=== PATIENT | female | born 1970 | race Caucasian/White ===

== ENCOUNTER 2017-04-21 07:03 | Inpatient (IN) | payer OTHER ==
--- NOTE | 2017-03-26 17:46 | HP ---
CC: Swathi Khan MD * HISTORY AND PHYSICAL: DATE OF ADMISSION/SURGERY: 04/21/17 ATTENDING SURGEON: Payam Mark MD (DICTATED BY INEZ MUNIZ) CHIEF COMPLAINT: Large tubulovillous adenoma of the ascending colon. HISTORY OF PRESENT ILLNESS: Ayala Carrington is a pleasant 47-year-old female who was seen in our practice at [facility] earlier in February of this year to discuss a large tubulovillous adenoma found on a colonoscopy. The patient underwent colonoscopy because she had a family history of colon cancer in her mother who at age 59. She had a screening colonoscopy performed earlier in January by Dr. Yusef Marcelino that revealed a large polyp in the ascending colon. The polyp was found to be too large to be removed endoscopically, so it was biopsied and revealed a tubulovillous adenoma. Given the benign nature of the polyp; however, known family history of colon cancer in the patient, she was referred to our practice to discuss surgical option for the polyp removal. The patient herself denied any abdominal pain, nausea, or vomiting or any changes in the bowel habits since her colonoscopy. She has never complained of any melena or bleeding per rectum. No weight loss or night sweats recently. She had been seen by Dr. Mark back in early February and he discussed with her proceeding with a laparoscopic approach, hoping to minimize the recovery period for the patient if we do it laparoscopic assisted on the wedge resection style. We also discussed with her back then combining a laparoscopic approach with intraoperative colonoscopy to help localize the lesion to be removed with clear margin. The patient returned to the office today to discuss the surgical options. She is scheduled for a laparoscopic partial colectomy with Dr. Mark with possible intraoperative colonoscopy and colonoscopic polypectomy to be scheduled on a later date on 04/21/17. Since her last office visit, the patient reports doing extremely well. She denies any abdominal pain, nausea, vomiting, change in bowel habits, melena or bleeding per rectum. She is getting ready to take a trip to [place] with her significant other and she will return back home a few days before her anticipated surgery. PAST MEDICAL HISTORY: Significant for benign essential hypertension, bipolar 1 disorder as well as seasonal allergies. PAST SURGICAL HISTORY: Significant for dilatation and curettage back in December of this year. She, otherwise, has never had any abdominal surgeries in the past. CURRENT MEDICATIONS: At home include: 1. Fluticasone propionate 50 mcg 1 spray in each nostril daily as needed for seasonal allergy. 2. Lisinopril 10 mg once daily. 3. Concerta 36 mg 2 tablets once daily. 4. Seroquel 300 mg half tablet p.o. q.h.s. 5. Lamotrigine 200 mg 1 tablet q.h.s. 6. Abilify 2 mg once q.h.s. 7. Zyrtec Allergy 10 mg once daily. ALLERGIES: She has no known drug allergies. FAMILY HISTORY: As mentioned above, significant for colon cancer in her mother who at age 59 and she also has history of hypertension. SOCIAL HISTORY: The patient has never smoked. She consumes about 3 to 4 glasses of wine weekly. She exercised on a regular basis and caffeine intake is minimal. REVIEW OF SYSTEMS: See HPI. Otherwise negative. She denies any headache, dizziness, blurred vision, or double vision. No sore throat, cough, wheezing, or shortness of breath. No chest pain, palpitations, or syncope. She denies any abdominal pain, nausea, vomiting, changes in the bowel habits, melena, or bleeding per rectum. No fever, chills, weight loss, or night sweats. She denies any flank pain, dysuria, hematuria, or urinary frequency. PHYSICAL EXAMINATION GENERAL: She is a pleasant middle-aged female, healthy appearing, slightly overweight but in no acute distress or discomfort at the time of visit. VITAL SIGNS: Her blood pressure is 140/90, temperature of 98.4, pulse of 76. She is 5 feet 6 inches, weight 240 pounds with BMI of 38. HEENT: Sclerae anicteric. PERRLA. EOMs intact. Oropharynx is pink and moist with no exudate. NECK: Supple. Trachea midline. No cervical adenopathy, thyromegaly, or JVD. LUNGS: Clear to auscultation bilaterally. HEART: Regular rate and rhythm. Normal S1 and S2 without rubs, murmurs, or gallops. BACK: Normal curvature. No CVA tenderness. BREAST EXAM: Deferred at this time. ABDOMEN: Soft, round, slightly obese, nontender, and nondistended. There are no hernias, masses, or hepatosplenomegaly. No guarding, rigidity, or rebound tenderness. EXTREMITIES: Without cyanosis, clubbing, or edema. RECTAL: Exam deferred at this time. NEUROLOGIC: Grossly intact. IMPRESSION: A 47-year-old female with a family history of colon cancer who was found to have a large tubulovillous adenoma of the ascending colon on her screening colonoscopy who was seen in the office today to discuss surgical removal of this large polyp. PLAN: The patient was seen by Dr. Mark as well as Dr. Ibarra who will assist Dr. Mark with intraoperative colonoscopy part as well as possibility of colonoscopic polypectomy. The patient appears to be a good candidate for the laparoscopic-assisted wedge resection as outlined above. We discussed with her proceeding with the surgery as minimally invasive as possible. Risks include but not limited to infection, bleeding, or injury to adjacent structure. She appears understandable to inherent risk and wishes to proceed with the surgery as outlined. She will have her readmission testing done prior to her trip to [place] and surgery will be scheduled few days upon her return to be performed by Dr. Mark and Dr. Ibarra on 04/21/17. We will follow her up accordingly. INEZ MUNIZ [id number]/[facility] [place] #: [id number] MTDAg
[~2017-04-21 07:03] MED LIST: Buffered Lidocaine 0.9% SYRIN* 5 ML/SYR SYRINGE INTRADERM ONE; Dexamethasone TAB* 4 MG PO ONE; ERTApenem(*) 1 GM in NS 0.9% 50 ML* 50 ML IVPB SCH; Famotidine IV* 10 MG/ML 2 ML (20 mg) IV ONE; Morphine INJ* 2 MG/ML 1 ML SYRINGE IV PRN; PROCHLORPERAZINE INJ 5 MG/ML 2 ML VIAL IV PRN
[2017-04-21] MEDS ORDERED: Buffered Lidocaine 0.9% SYRIN* 5 ML/SYR SYRINGE ONE (07:06)
[2017-04-21] MEDS ORDERED: Famotidine IV* 10 MG/ML 2 ML (20 mg) ONE (07:06)
[2017-04-21] MEDS ORDERED: Dexamethasone TAB* 4 MG ONE (07:06)
[2017-04-21] MEDS ORDERED: Scopolamine 1.5 mg* PATCH ONE (08:00)
[2017-04-21] MEDS ORDERED: Midazolam* 1 MG/ML 5 ML VIAL (5 MG) ONE (08:05)
[2017-04-21] MEDS ORDERED: fentaNYL* 50 MCG/ML 5 ML VIAL (250 MCG VIAL) ONE (08:05)
[2017-04-21] MEDS ORDERED: KETAMINE HCL* 50 MG/ML 10 ML VIAL ONE (08:05)
[2017-04-21] MEDS ORDERED: Atracurium* 10 MG/ML 10 ML VIAL ONE ×2 (08:05→11:52)
[2017-04-21] MEDS ORDERED: Bupivacaine 0.5% W/EPI SDV* 10 ML VIAL INJ ONE ×3 (08:43→12:27)
[2017-04-21] MEDS ORDERED: Phenylephrine INJ* 10 MG/ML 1 ML VIAL (10 MG) ONE (09:32)
[2017-04-21] MEDS ORDERED: Glycopyrrolate IV* 0.2 MG/ML 1 ML VIAL ONE (09:32)
[2017-04-21] MEDS ORDERED: Ondansetron INJ* 2 MG/ML VIAL ONE (09:32)
[2017-04-21] MEDS ORDERED: PROCHLORPERAZINE INJ 5 MG/ML 2 ML VIAL ONE (09:32)
[2017-04-21] MEDS ORDERED: Propofol* 10 MG/ML 20 ML BTL IV PUSH ONE (09:32)
[2017-04-21] MEDS ORDERED: Neostigmine Methylsulfate* 2 MG/2 ML SYRINGE ONE (09:32)
[2017-04-21] MEDS ORDERED: EPHEDrine (Pressors)* 50 MG/ML VIAL ONE (09:32)
[2017-04-21] MEDS ORDERED: Dexamethasone IV* 4 MG/ML 1 ML (4 MG) ONE (09:32)
[2017-04-21] MEDS ORDERED: Morphine INJ* 10 MG/ML 1 ML SYRINGE ONE ×2 (09:58→11:52)
[2017-04-21] MEDS ORDERED: hydrALAZINE IV* 20 MG/ML VIAL ONE (12:43)
[2017-04-21] MEDS ORDERED: Acetaminophen TAB* 325 MG PO PRN (12:48)
[2017-04-21] MEDS ORDERED: Docusate CAP* 100 MG PO PRN (12:48)
[2017-04-21] MEDS ORDERED: Ondansetron INJ* 2 MG/ML VIAL IV PRN (12:48)
[2017-04-21] MEDS ORDERED: Albuterol HFA INHALER* 8 gm MDI INH PRN (12:53)
--- NOTE | 2017-04-21 13:01 | PN ---
Progress Note - Progress Note Date of Service: 04/21/17 Note: Brief Operative Note: Pre-op: Ascending colon mass Post-op: Same Procedure: Laparoscopic assisted ascending colon polypectomy with intra- operative colonoscopy Surgeon: Dr. Mark [place] Layer: Dr. Ibarra, Dr. Bollo. Estela Jay Anaesthesia: GETA EBL: <100 cc Fluids: LR 3,000 cc Catheter: Piña to gravity Drains: None Specimen: Ascending colon polyp Findings: See dictated op note
[2017-04-21] MEDS ORDERED: fentaNYL* 50 MCG/ML 2 ML VIAL (100 MCG VIAL) ONE (13:05)
[2017-04-21] MEDS: fentaNYL* 50 MCG/ML 2 ML VIAL (100 MCG VIAL) IV PRN ×4 (13:08→13:25)
[2017-04-21] MEDS ORDERED: Morphine INJ* 4 MG/ML 1 ML SYRINGE ONE (13:45)
[2017-04-21] MEDS ORDERED: Morphine INJ* 4 MG/ML 1 ML SYRINGE IV PRN (15:06)
[2017-04-21] MEDS: HYDROmorphone* 1 MG/ML 1 ML SYR IV PRN ×4 (16:01→21:17)
[2017-04-21] MEDS: lamoTRIgine TAB(*) 100 MG PO SCH (21:19)
[2017-04-21] MEDS: QUEtiapine TAB* 300 MG PO SCH (21:19)
[2017-04-21] MEDS: Heparin VIAL(*) 5000 UNITS/ML VIAL (FIVE THOUSAND) SUBCUT SCH (21:20)
[2017-04-22] MEDS: LORazepam TAB(*) 0.5 MG PO PRN ×3 (02:41→23:26)
[2017-04-22] MEDS: HYDROmorphone* 1 MG/ML 1 ML SYR IV PRN ×3 (03:29→09:20)
--- NOTE | 2017-04-22 04:18 | OP ---
CC: Swathi Khan MD; Yusef Marcelino MD OPERATIVE REPORT: DATE OF OPERATION: 04/21/17 DATE OF : 70 SURGEON: Payam Mark MD CO-SURGEON: Dr. Ibarra PRE-OP DIAGNOSIS: Polyp of ascending colon. POST-OP DIAGNOSIS: Polyp of ascending colon. OPERATIVE PROCEDURE: Laparoscopic assisted wedge resection of polyp from ascending colon with intra operative colonoscopy. ESTIMATED BLOOD LOSS: Minimal. IV FLUIDS: Crystalloid. SPECIMEN: Polyp of ascending colon. DRAINS: None. COMPLICATIONS: None. COUNTS: The instrument, needle, and sponge counts were correct. DESCRIPTION OF PROCEDURE: The patient was brought to the operating room and placed on the table sup ine. Sequential compression devices were placed on both lower extremities. General anesthesia was administered. Piña catheter was placed. She was positioned and padded appropriately. She was pre pped and draped in usual sterile fashion. She received appropriate antibiotics. Time-out was perfo rmed. Local anesthetic was infiltrated infraumbilically and a vertical infraumbilical incision was created using an open technique. Peritoneal cavity was accessed. A 5- mm optical trocar was placed and ca rbon dioxide was insufflated to a pressure of 15 mmHg. Under direct visualization, 5-mm trocars wer e placed in the suprapubic midline, also in the right lower quadrant and in the left upper quadrant. Inspection revealed generous omentum and inspection also revealed tattooing at the ascending colon just proximal to the hepatic flexure. Mobilization of the right colon proceeded from the midline starting at the gastrocolic ligament and dividing this to the hepatic flexure taking down the attachments there while preserving the duodenum and stomach from any injury. The mobilization continued along the ascending colon, working proxima lly as well as from the ileocecal region working distally until the right colon was medially rotated . At this point, a clamp was placed on the distal ileum just proximal to the ileocecal valve and Dr Val Ibarra performed the intraoperative colonoscopy. After attempting to staple off the polyp with colonoscopic visualization failed, the decision was ma de to perform a wedge resection of the colon polyp. Initially this was attempted as a intracorporea l procedure; however, it was determined that the size of the polyp would not allow for this and ther efore, after making a small colotomy that was oversewn with 3-0 silk and then a small midline laparo sarthak was created and then right colon was exteriorized. The polyp was excised completely and then t he colotomy was closed with two firings of the TA-90 blue stapler and this staple line was oversewn, had bleeding spots with 3-0 silks and ultimately it was oversewn in a whip-stitch fashion with a 3- 0 Maxon. After assuring hemostasis, the colon was irrigated, was returned to the abdominal cavity a nd then the midline wound was closed with a #1 Polysorb in an interrupted [id number] fashion. The ports were removed. The hemostasis was assured. The skin wounds were irrigated, closed with st aples. Dressings were applied. The patient tolerated the procedure well, was extubated and transfe rred to recovery room in stable condition. [id number]/[facility] #: [id number]
[2017-04-22] MEDS: Heparin VIAL(*) 5000 UNITS/ML VIAL (FIVE THOUSAND) SUBCUT SCH ×3 (06:10→21:38)
--- NOTE | 2017-04-22 08:36 | PN ---
Progress Note - Progress Note Date of Service: 04/22/17 SOAP: Subjective: This is a 47-year old female POD#1 s/p lap->open ascending colon polypectomy. - c/o bloating. reports having hiccups but denies flatus and BMs. - Pt tolerating clear liquid diet well w/o n/v. has some appetite. - c/o tender in abdomen and pain at incision site with ambulation - Pain moderately controlled with IV Dilaudid. Objective: - WNWD female in NAD, appear comfortable in chair. - VSS, afebrile - Heart: RRR, no murmurs - Lungs: CTA bilaterally - Abdomen: dressings CDI. No bowel sounds present in all 4 quadrants. Round, soft, non-distended, tender to palpation around the midline incision. - Phillips catheter drains clear yellow urine. - Extremities: Swelling in right hand (IV side), no ankle swelling, calves soft and non-tender. Temp Pulse Resp BP Pulse Ox 98.4 F 64 20 117/71 95 04/22/17 07:24 04/22/17 07:24 04/22/17 08:00 04/22/17 07:24 04/22/17 08:00 Assessment: -POD#1 s/p ascending colon polypectomy: patient is doing well. -Anxiety: well controlled by Ativan Plan: - Continue clear liquid diet, await bowel function. - Continue pain management. - Encourage ambulation as tolerated. <Cathi Arreguin - Last Filed: 04/22/17 08:45> - Progress Note SOAP: Subjective: Patient seen and examined. Agree to above note. Objective: [] Assessment: POD#1, s/p lap assisted ascending colon polypectomy, doing well. Plan: Ambulate Await bowel function D/C phillips Keep on clear liquids Pain management <Bianka Jay - Last Filed: 04/22/17 09:42>
[2017-04-22] MEDS: Lisinopril TAB* 10 MG PO SCH (08:41)
[2017-04-22] MEDS: Methylphenidate ER TAB* 18 MG PO SCH (08:42)
[2017-04-22] MEDS: ARIPiprazole TAB* 2 MG PO SCH (09:13)
[2017-04-22] MEDS: oxyCODONE/Acetamin 5/325 MG* TAB PO PRN ×3 (13:29→23:13)
[2017-04-22] MEDS: QUEtiapine TAB* 300 MG PO SCH ×2 (18:44→21:37)
[2017-04-22] MEDS: lamoTRIgine TAB(*) 100 MG PO SCH (21:38)
[2017-04-22] MEDS ORDERED: diPHENhydraMINE IV* 50 MG/ML 1 ml VIAL (BENADRYL) IV ONE (23:19)
[2017-04-23] MEDS: oxyCODONE/Acetamin 5/325 MG* TAB PO PRN ×5 (03:32→22:36)
[2017-04-23] MEDS: Heparin VIAL(*) 5000 UNITS/ML VIAL (FIVE THOUSAND) SUBCUT SCH ×3 (05:18→22:36)
[2017-04-23] MEDS: Omeprazole CAP* 20 MG PO SCH (07:38)
--- NOTE | 2017-04-23 07:45 | PN ---
Progress Note - Progress Note Date of Service: 04/23/17 SOAP: Subjective: This is a 47-year old female POD#2 s/p lap->open ascending colon polypectomy. - Patient denies any complains. - Tolerating clear liquid diet well w/o n/v, having some appetite and wants to eat more. - Denies any BMs or passing flatus, states "Burping only". - Pain well controlled by PO Percocet only, states feels better than with Dilaudid. - Piña d'c ed yesterday, no complaints with urination. Denies pain with urination or blood in the urine. Patient is able to walk and use the bathroom. - reports holding a folded blanket against abdomen to apply pressure, feels better. Objective: - WNWD female in NAD appears comfortable in chair - VSS, afebrile - Heart: RRR, no murmurs - Lungs: CTA bilaterally. - Abdomen: Dressings from day of surgery, CDI Hypoactive bowel sounds present round, soft, non distended. Tender to palpation around midline incision. - Extremities: Hand swelling resolved. No ankle swelling. Intake & Output 04/22/17 04/23/17 04/23/17 22:59 06:59 14:59 Intake Total 933 980 Output Total 950 350 Balance -17 630 Intake: IV Fluids 933 980 LR 933 980 Output: Urine 950 350 Temp Pulse Resp BP Pulse Ox 97.4 F 70 18 105/74 97 04/23/17 07:29 04/23/17 07:29 04/23/17 07:29 04/23/17 07:29 04/23/17 07:29 Assessment: - POD#2 s/p lap->open ascending colon polypectomy: Patient is stable and doing well. Plan: - Advance to full liquid diet as tolerated. - Order abdominal binder. - Continue pain management - Encourage ambulation as tolerated. - Await bowel function.
[2017-04-23] MEDS: Methylphenidate ER TAB* 18 MG PO SCH (08:28)
--- NOTE | 2017-04-23 08:30 | OP ---
DATE OF OPERATION: 04/21/17 - ROOM #338 DATE OF : 70 SURGEON: Austin Ibarra MD ANESTHESIOLOGIST: Dr. Lopez. ANESTHESIA: General. PRE-OP DIAGNOSIS: Tubulovillous adenoma of the ascending colon. POST-OP DIAGNOSIS: Tubulovillous adenoma of the hepatic flexure. OPERATIVE PROCEDURE: Colonoscopy to cecum, intraoperative. ESTIMATED BLOOD LOSS: None. SPECIMENS: None. COMPLICATIONS: None. NOTE: The colonoscopy was done intraoperatively with the patient under general anesthesia along with a simultaneous diagnostic laparoscopy with Dr. Payam Mark for identification and location of the the known existing polyp that was noted on a routine screening colonoscopy recently. Biopsies had shown this to be a tubulovillous adenoma without evidence of dysplasia; however, felt to be too large for endoscopic removal. At this point, she is to undergo a combined colonoscopy as well as diagnostic laparoscopy with possible laparotomy for removal of the polyp and the colonoscopy is being done to identify the polyp and perhaps expedite removal with a wedge resection or assist with a more formal resection. The procedure of colonoscopy was discussed with the patient preoperatively and the risks are but not limited to bleeding, infection, intra-abdominal abscess formation, perforation requiring colonic repair and/or resection with possible colostomy. Risks of anesthesia were also discussed. DESCRIPTION OF PROCEDURE: The patient had been placed under general anesthesia. The laparoscopic exposure and mobilization of the transverse and right colon had been performed and a clamp was placed on the terminal ileum to prevent insufflation of the small bowel itself. The digital rectal exam was performed, which showed slightly decreased tone, no evidence of mass or blood. The Pentax videoendoscope was then inserted in the anal canal. With under direct vision, it was advanced around to the right colon. There was some tortuosity in the splenic flexure area but this was traversed with some persistence. We were able to identify the cecum, ileocecal valve, and appendiceal orifice and photographs were taken of this location. The preparation throughout was excellent. The endoscope was withdrawn and here we were able to identify the rather large tubulovillous adenoma, which in conjunction with the laparoscopic view and the previously place tattoo showed this to be just about the hepatic flexure. Next, along with Dr. Mark using the laparoscopic instruments to manipulate the colon, we attempted to localize the polyp along the wall of the colon to see if there was the possibility of a stapled wedge resection. However after placing both the snare as well as a larger biopsy forceps to manipulate the lesion and bring it up into view and attempting to place a stapler externally to see if this could be removed, in this manner, we felt that the polyp was too large and in a location on the antimesenteric border, which made this not possible and at this point, decision was made to remove the colonoscope and proceed with an open polyp resection. The colonoscope was then withdrawn and as much as of the air was suctioned from the colonic lumen. No other abnormalities were noted on retrieval and the remainder of the scope. The patient tolerated this portion of the procedure well. [id number]/[facility] #: [id number] [facility]
[2017-04-23] MEDS ORDERED: Fluticasone NASAL SPRAY 50MCG* 16 gm SPRAY BTL BOTH NARES PRN (08:49)
[2017-04-23] MEDS ORDERED: Cetirizine* 10 MG TAB PO PRN (08:49)
--- NOTE | 2017-04-23 08:49 | PN ---
Progress Note - Progress Note Date of Service: 04/23/17 SOAP: Subjective: Hungry but no flatus or BM. Pain is well controlled with po meds. Objective: Vital Signs Temp 97.4 F 04/23/17 07:29 Pulse 70 04/23/17 07:29 Resp 18 04/23/17 08:00 BP 105/74 04/23/17 07:29 Pulse Ox 96 04/23/17 08:00 Intake & Output 04/22/17 04/23/17 04/23/17 18:59 06:59 18:59 Intake Total 1102 1913 Output Total 2500 550 Balance -1398 1363 Intake: IV Fluids 862 1913 LR 862 1913 Oral 240 Output: Urine 1200 550 Piña 1300 NAD Lungs: CTA B Heart: reg s1s2 Abd: incis c/d/i, no erythema; +BS, soft; tender at incisions. Path pending Assessment: POD#2 s/p lap assist wedge rsxn for R colon polyp. Stable. Plan: Await GI fct. Full liquids. Await path. D/c likely in 1-2 days. Shower. Plan d/w patient.
[2017-04-23] MEDS: ARIPiprazole TAB* 2 MG PO SCH (08:58)
[2017-04-23] MEDS: Lisinopril TAB* 10 MG PO SCH (08:58)
[2017-04-23] MEDS: D5W 1/2 NS KCl 20 Meq 1000 ML* 1,000 ML IV SCH ×2 (09:01→18:42)
[2017-04-23] MEDS: QUEtiapine TAB* 300 MG PO SCH (20:34)
[2017-04-23] MEDS: lamoTRIgine TAB(*) 100 MG PO SCH (20:35)
[2017-04-23] MEDS: LORazepam TAB(*) 0.5 MG PO PRN (22:01)
[2017-04-23] MEDS: HYDROmorphone* 1 MG/ML 1 ML SYR IV PRN (23:45)
[2017-04-24] MEDS: oxyCODONE/Acetamin 5/325 MG* TAB PO PRN ×5 (04:05→22:49)
[2017-04-24] MEDS: D5W 1/2 NS KCl 20 Meq 1000 ML* 1,000 ML IV SCH (04:18)
[2017-04-24] MEDS: Heparin VIAL(*) 5000 UNITS/ML VIAL (FIVE THOUSAND) SUBCUT SCH ×3 (06:11→21:56)
--- NOTE | 2017-04-24 07:47 | PN ---
Progress Note - Progress Note Date of Service: 04/24/17 SOAP: Subjective: This is a 47-year old female POD#3 s/p ascending colon polypectomy. - Tolerating full liquid diet well w/o n/v. Has some appetite, wants to eat some soft food. - reports passed flatus twice overnight, still burping. Denies any BM. - c/o SOB with walking, denies chest pain. No SOB when resting.- Got 1 dose of Dilaudid last night because of increased tenderness around midline incisions. pt thinks might be caused by too much walking. - Abdominal binder helped especially when walking but was discontinued because the size did not fit. Objective: - WNWD female in NAD, appears comfortable in chair. - VSS, afebrile - Heart: RRR, no murmurs. - Lungs: CTA bilaterally. - Abdomen: Slight erythema around midline incision and lap sites. No blood noted. Hypoactive bowel sounds present Soft, round, non-distended, tender to palpation around midline incision. Temp Pulse Resp BP Pulse Ox 98.0 F 64 20 112/63 100 04/24/17 04:03 04/24/17 04:03 04/24/17 06:05 04/24/17 04:03 04/24/17 04:03 Intake & Output 04/22/17 04/23/17 04/24/17 04/25/17 06:59 06:59 06:59 06:59 Intake Total 6840 3015 4698 Output Total 2050 3050 4400 Balance 4790 -35 298 Weight 247 lb Intake: IV Fluids 5970 2775 2004 D5W 1/2 NS 20 meq KCL 2004 LR 5970 2775 IVPB 564 D5W 1/2 NS 20 meq KCL 564 Oral 230 220 0643 Output: Urine 1750 4400 Piña 2050 1300 Other: # Bowel Movements 0 Assessment: - POD#2 s/p ascending colon polypectomy: Patient is stable and doing well. Plan: - Advance to soft diet as tolerated - Saline Loc IV and encourage oral intake of fluids. - Continue pain management as tolerated. - Encourage ambulation as tolerated.
--- NOTE | 2017-04-24 09:11 | PN ---
Progress Note - Progress Note Date of Service: 04/24/17 Note: Surgery Progress: S: POD# 2. Cont to do well. Pain controlled for the most part w/ Percocet (she req'd one dose of Dilaudid last night). Tolerating full liqs and would like to advance. Passing flatus. No BM yet. Ambulating. O: Vital Signs - 8 hr 04/24/17 04/24/17 04/24/17 06:00 06:05 07:24 Temperature 99.1 F Pulse Rate 68 Respiratory 20 20 14 Rate Blood Pressure 116/71 (mmHg) O2 Sat by Pulse 100 Oximetry 04/24/17 09:12 Temperature Pulse Rate Respiratory 16 Rate Blood Pressure (mmHg) O2 Sat by Pulse Oximetry Intake and Output Last 24 Hours 04/22/17 04/23/17 04/24/17 04/25/17 06:59 06:59 06:59 06:59 Intake Total 6840 3015 4698 440 Output Total 205 3050 4400 Balance 4790 -35 298 440 Weight 247 lb Intake: IV Fluids 5970 2775 2003 D5W 1/2 NS 20 meq KCL 2004 LR 5970 2775 IVPB 564 D5W 1/2 NS 20 meq KCL 564 Oral 706 557 5042 440 Output: Urine 1750 4400 Piña 2050 1300 Other: # Bowel Movements 0 Heart: reg Lungs: clear upper buck; decreased at bases Abd: +BS; all incisions w/ small amt erythema; no drainage; soft; mild to mod tenderness Extr: no edema A/P: s/p lap assisted wedge rsxn colon polyp (path pend as of this am); progressing. Will adv diet to soft; heplock IV; prob d/c home 04/25.
[2017-04-24] MEDS: Omeprazole CAP* 20 MG PO SCH (09:12)
[2017-04-24] MEDS: ARIPiprazole TAB* 2 MG PO SCH (09:12)
[2017-04-24] MEDS: Lisinopril TAB* 10 MG PO SCH (09:12)
[2017-04-24] MEDS: Methylphenidate ER TAB* 18 MG PO SCH (09:22)
[2017-04-24] MEDS: lamoTRIgine TAB(*) 100 MG PO SCH (21:55)
[2017-04-24] MEDS: Ibuprofen TAB* 600 MG PO PRN (21:55)
[2017-04-24] MEDS: QUEtiapine TAB* 300 MG PO SCH (21:55)
[2017-04-24] MEDS: LORazepam TAB(*) 0.5 MG PO PRN (21:55)
[2017-04-25] MEDS: oxyCODONE/Acetamin 5/325 MG* TAB PO PRN ×3 (02:34→10:55)
[2017-04-25] MEDS: Ibuprofen TAB* 600 MG PO PRN ×2 (03:48→09:54)
[2017-04-25] MEDS: Heparin VIAL(*) 5000 UNITS/ML VIAL (FIVE THOUSAND) SUBCUT SCH (05:31)
[2017-04-25] MEDS: Omeprazole CAP* 20 MG PO SCH (07:35)
[2017-04-25 07:47] VITALS: BP 93/53
[2017-04-25] MEDS: ARIPiprazole TAB* 2 MG PO SCH (09:54)
[2017-04-25] MEDS: Methylphenidate ER TAB* 18 MG PO SCH (09:56)
[2017-04-25] MEDS: Lisinopril TAB* 10 MG PO SCH (11:24)
== END 2017-04-25 11:20 | disposition home or self-care (01) | DRG 331 ==
LOC: AA 07:03 → SSU 14:28
PROVIDERS: ADMIT Surgery; ATTEND Surgery
PROC: 0DBK0ZZ Excision of Ascending Colon, Open Approach (ICD-10-PCS; 2017-04-21)
PROC: 0DJD4ZZ Inspection of Lower Intestinal Tract, Percutaneous Endoscopic Approach (ICD-10-PCS; principal; 2017-04-21 08:30)
DX: D12.2 Benign neoplasm of ascending colon (principal); Z68.38 Body mass index [BMI] 38.0-38.9, adult; E66.3 Overweight; I10 Essential (primary) hypertension; F41.9 Anxiety disorder, unspecified; F31.9 Bipolar disorder, unspecified; Z82.49 Family history of ischemic heart disease and other diseases of the circulatory system; Z80.0 Family history of malignant neoplasm of digestive organs; Z72.89 Other problems related to lifestyle; Z53.31 Laparoscopic surgical procedure converted to open procedure
CPT/HCPCS: 88305; A9270-GY; C1776; J0360; J0780; J1100; J1170; J1335; J1644; J2250; J2270; J2405; J2704; J3010

== ENCOUNTER 2018-09-13 13:27 | Inpatient (IN) | payer OTHER ==
[2018-09-13] MEDS ORDERED: Acetaminophen TAB* 325 MG ONE (13:41)
[2018-09-13] MEDS ORDERED: Acetaminophen TAB* 325 MG PO ONE (13:43)
[2018-09-13] MEDS ORDERED: Ondansetron ODT TAB* 4 MG ONE (13:45)
[2018-09-13] MEDS ORDERED: Ondansetron ODT TAB* 4 MG PO ONE (13:47)
[2018-09-13] MEDS ORDERED: Piperacillin/Tazobac ADVAN(*) 3.375 GM in NS 0.9% 100 ML* 100 ML IVPB ONE (13:54)
[2018-09-13] MEDS ORDERED: NS 0.9% 1000 ML*IV.FLUID IV ONE (13:54)
[2018-09-13] MEDS ORDERED: cefTRIAXone(*) 1 GM in NS 0.9% 50 ML* 50 ML IVPB ONE (14:10)
--- NOTE | 2018-09-13 14:15 | ED ---
Influenza-Like Illness - HPI Summary HPI Summary: This patient is a 48 year old F presenting to [facility] with a chief complaint of flu-like symptoms since about 4 days ago. She was dx with a UTI 7 days ago and started taking Bactrim twice a day. She started developing flu-like symptoms a few days after that. The patient rates the pain 6/10 in severity. Patient reports body aches, joint pain (could not stand up yesterday due to pain in knee ), headache, vomiting (past week), severe neck pain (I couldnt move my head yesterday), muscle soreness, nausea, fever (between 101-104 for 5-6 days), chills, and productive cough. Patient denies dysuria and back pain. She has a PMHx of PNA and HTN. - History of Current Complaint Chief Complaint: EDFluSymptoms Time Seen by Provider: 09/13/18 13:54 Hx Obtained From: Patient Onset/Duration: Lasting Days, Still Present Severity: Moderate Associated Signs & Symptoms: Fever, Cough - Productive, Headache, Vomiting - Allergy/Home Medications Allergies/Adverse Reactions: Allergies Allergy/AdvReac Type Severity Reaction Status Date / Time SEASONAL Allergy Congestion Uncoded 09/13/18 13:34 Home Medications: Home Medications Cetirizine* [ZyrTEC 10 MG TAB*] 10 mg PO DAILY PRN 09/13/18 [History Confirmed 09/13/18] Fluticasone NASAL SPRAY 50MCG* [Flonase NASAL SPRAY 50MCG*] 2 spray BOTH NARES DAILY PRN 09/13/18 [History Confirmed 09/13/18] Lisinopril TAB* [Prinivil TAB*] 10 mg PO DAILY 09/13/18 [History Confirmed 09/13] Methylphenidate HCl [Concerta] 72 mg PO DAILY 09/13/18 [History Confirmed ] Montelukast Sodium TAB* [Singulair TAB*] 10 mg PO DAILY 09/13/18 [History Confirmed 09/13/18] PMH/Surg Hx/FS Hx/Imm Hx Endocrine/Hematology History: Denies: Hx Diabetes, Hx Thyroid Disease Cardiovascular History: Reports: Hx Hypertension Respiratory History: Reports: Other Respiratory Problems/Disorders - severe post nasal drip, can sometimes cause n/v Denies: Hx Asthma, Hx Chronic Obstructive Pulmonary Disease (COPD) GI History: Denies: Hx Ulcer Musculoskeletal History: Reports: Other Musculoskeletal History - broken neck C- 4, as a child, one of only a few pts to ambulate after Sensory History: Reports: Hx Contacts or Glasses Denies: Hx Hearing Aid Opthamlomology History: Reports: Hx Contacts or Glasses Psychiatric History: Reports: Hx Anxiety - chronic issue, controlled with medication, Hx Depression - controlled with medication, Hx Bipolar Disorder - Cancer History Hx Chemotherapy: No Hx Radiation Therapy: No - Surgical History Surgery Procedure, Year, and Place: D&C 2016. colonoscopy Hx Anesthesia Reactions: Yes - pt states she woke up during D&C, and also during colonoscopy - Immunization History Date of Tetanus Vaccine: Unk Date of Influenza Vaccine: Unk Infectious Disease History: No Infectious Disease History: Denies: Hx Hepatitis, Hx Human Immunodeficiency Virus (HIV), History Other Infectious Disease, Traveled Outside the [place] in Last 30 Days - Family History Known Family History: Positive: Hypertension, Other - Asthma Family History: no known cardiovascular disease - Social History Alcohol Use: Occasionally Alcohol Amount: 5 drinks a week, Substance Use Type: Reports: None Hx Tobacco Use: No Smoking Status (MU): Never Smoked Tobacco Review of Systems Positive: Fever, Chills Positive: Other - Severe neck pain Positive: Cough - Productive cough Positive: Vomiting, Nausea Negative: dysuria Positive: Other - Body aches, joint pain (could not stand up yesterday due to pain in knee), muscle soreness. Denies back pain Positive: Headache All Other Systems Reviewed And Are Negative: Yes Physical Exam - Summary Physical Exam Summary: VITAL SIGNS: Reviewed. GENERAL: Patient is a well-developed and nourished MALE who is lying comfortable in the stretcher. Patient is not in any acute respiratory distress. HEAD AND FACE: No signs of trauma. No ecchymosis, hematomas or skull depressions. No sinus tenderness. EYES: PERRLA, EOMI x 2, No injected conjunctiva, no nystagmus. EARS: Hearing grossly intact. Ear canals and tympanic membranes are within normal limits. MOUTH: Oropharynx within normal limits. NECK: Supple, trachea is midline, no adenopathy, no JVD, no carotid bruit, no c- spine tenderness, neck with full ROM. CHEST: Symmetric, no tenderness at palpation LUNGS: Clear to auscultation bilaterally. No wheezing or crackles. CVS: Regular rate and rhythm, S1 and S2 present, no murmurs or gallops appreciated. ABDOMEN: Soft, non-tender. No signs of distention. No rebound no guarding, and no masses palpated. Bowel sounds are normal. EXTREMITIES: FROM in all major joints, no edema, no cyanosis or clubbing. NEURO: Alert and oriented x 3. No acute neurological deficits. Speech is normal and follows commands. SKIN: Dry and warm Triage Information Reviewed: Yes Vital Signs On Initial Exam: Initial Vitals Temp Pulse Resp BP Pulse Ox 102.0 F 120 16 127/67 99 09/13/18 13:30 09/13/18 13:30 09/13/18 13:30 09/13/18 13:30 09/13/18 13:30 Vital Signs Reviewed: Yes Diagnostics - Vital Signs Vital Signs Temp Pulse Resp BP Pulse Ox 09/13/18 13:30 102.0 F 120 16 127/67 99 - Laboratory Result Diagrams: 09/13/18 14:27 09/13/18 14:27 Lab Statement: Any lab studies that have been ordered have been reviewed, and results considered in the medical decision making process. - Radiology Chest X-Ray Radiology Interpretation Completed By: Radiologist Summary of Radiographic Findings: 14:57. NO ACTIVE CARDIOPULMONARY DISEASE. ED Physician has reviewed this imaging report. - Ultrasound No standard instances Ultrasound Interpretation Completed By: Radiologist Summary of Ultrasound Findings: Abdomen Ultrasound. 16:13. 1. CHOLELITHIASIS WITH POSITIVE SONOGRAPHIC VILLAFANA SIGN. THE POSSIBILITY OF ACUTE. CHOLECYSTITIS CANNOT BE EXCLUDED. 2. MILD EXTRA HEPATIC DUCTAL DISTENTION. - EKG 14:14 Cardiac Rate: Tachycardia - 120 BPM EKG Rhythm: Sinus Rhythm ST Segment: Normal Flu Symptom Course/Dx - Course Assessment/Plan: This patient is a 48 year old F presenting to [facility] with a chief complaint of flu-like symptoms since about 4 days ago. She was dx with a UTI 7 days ago and started taking Bactrim twice a day. She started developing flu-like symptoms a few days after that. The patient rates the pain 6/10 in severity. Patient reports body aches, joint pain (could not stand up yesterday due to pain in knee), headache, vomiting (past week), severe neck pain (I couldnt move my head yesterday), muscle soreness, nausea, fever (between 101- 104 for 5-6 days), chills, and productive cough. Patient denies dysuria and back pain. She has a PMHx of PNA and HTN. Blood work without any significant abnormality except for INR 1.33, fibrinogen of 434, sodium 133, glucose 101, total bili is 3.7, AST is 80 for UTI is 184 alkaline phosphatase 491. Troponin is 0.04, glucose attending is 0.6. Patient was given aspirin. Patient denies any chest pain or shortness of breath. Chest x-ray impression: No active Pulmonary disease. In the ED course the patient met the sepsis criteria therefore the patient was given IV fluids 30 ccs per KG and Rocephin. After the patient was given Rocephin, the patients nurse reports that the patient had a rash in the lower extremities. The patient reports that it is painful rash therefore she was given Benadryl for possible reaction. However the patient may also be developing an erythema nodosum. Therefore the patient was given ibuprofen. The patient continues to be febrile and tachycardic therefore this time I discussed my physical exam and findings with Dr. Kebede from the hospital services who accepted the patient for admission. At this point I do not believe that the patient has meningitis since the patient doesnt have any meningeal signs, she does not have a headache or neck pain at this point. However if she develops any of the above symptoms I will be happy to perform a lumbar puncture. At this time the patient is hemodynamically stable alert and oriented 3. Addendun: Abdominal right upper quadrant ultrasound impression: Cholelithiasis with positive sonographic Morphis signed. Possible of acute cholecystitis cannot be excluded. Mild extrahepatic ductal distention. Dr. Shipley already spoke with Fransisco Vasquez physician digital sales assistant for Dr. Rogers from surgery and he is consulting for this patient. - Diagnoses Provider Diagnoses: Sepsis, Cholecystitis - Physician Notifications Discussed Care Of Patient With: Sheng Kebede - Hospitalist Time Discussed With Above Provider: 15:38 Instructed by Provider To: Admit As Inpatient Discharge - Sign-Out/Discharge Documenting (check all that apply): Patient Departure - Admit to David Kebede MD - Discharge Plan Condition: Stable Disposition: ADMITTED TO [facility] Referrals: Swathi Khan MD [Primary Care Provider] - - Billing Disposition and Condition Condition: STABLE Disposition: Admitted to [facility] - Attestation Statements Document Initiated by Jennyibshan: Yes Documenting Scribe: Wesley Estrada Provider For Whom Velma is Documenting (Include Credential): Ramy Mena MD Scribe Attestation: Wesley Juarez, scribed for Ramy Mena MD on 09/13/18 at 1820. Scribe Documentation Reviewed: Yes Provider Attestation: The documentation as recorded by the Wesley clemens accurately reflects the service I personally performed and the decisions made by me, Ramy Mena MD Status of Scribe Document: Viewed
[2018-09-13 14:45] LABS: ABS Basophils 0 10^3/ul (0-0.2); ABS Eosinophils 0.1 10^3/ul (0-0.6); ABS Lymphocytes 0.6 10^3/ul (1.0-4.8); ABS Monocytes 0.4 10^3/ul (0-0.8); ABS Neutrophils 6.8 10^3/ul (1.5-7.7); ABS Nucleated RBC 0 10^3/ul; Eosinophil % 1.3 %; Hematocrit 37 % (35-47); Hemoglobin 12.7 g/dl (12.0-16.0); Lymphocyte % 7.3 %; Mean Corpuscular HGB Conc 34 g/dl (31-36); Mean Corpuscular Hemoglobin 30 pg (27-31); Mean Corpuscular Volume 89 fL (80-97); Mean Platelet Volume 7.5 fL (7.4-10.4); Nucleated Red Blood Cells % 0; Platelet Count 262 10^3/ul (150-450); Red Blood Count 4.18 10^6/ul (4.00-5.40); Red Cell Distribution Width 14 % (10.5-15); White Blood Count 7.9 10^3/ul (3.5-10.8)
[2018-09-13 14:59] LABS: EGFR Non-African American 68.6 (>60)
[2018-09-13 15:03] LABS: INR 1.33 (0.77-1.02)
[2018-09-13] MEDS ORDERED: Ibuprofen TAB* 800 MG PO ONE ×2 (15:23→15:24)
[2018-09-13] MEDS ORDERED: diPHENhydraMINE PO* 50 MG PO ONE (15:37)
[2018-09-13] MEDS ORDERED: Aspirin 81 mg CHEW TAB* 81 MG TAB.CHEW PO ONE (15:42)
[2018-09-13] MEDS ORDERED: HYDROmorphone INJ* 0.5 MG/0.5 ML SYRINGE IV SLOW PU PRN (17:16)
[2018-09-13 17:41] LABS: Urine Appearance Cloudy; Urine Blood Negative (Negative); Urine Color Amber; Urine Ketones Trace (Negative); Urine Protein 1+(30 mg/dL) (Negative); Urine Red Blood Cell 1+(3-5/hpf) (Absent); Urine Specific Gravity 1.033 (1.010-1.030); Urine Urobilinogen Positive (Negative); Urine White Blood Cell Trace(0-5/hpf) (Absent)
[2018-09-13] MEDS ORDERED: Zosyn per Pharmacy* NOTE FOLLOW UP SCH (18:00)
[2018-09-13 18:44] LABS: Hematocrit 34 % (35-47); Hemoglobin 11.5 g/dl (12.0-16.0); Mean Corpuscular HGB Conc 34 g/dl (31-36); Mean Corpuscular Hemoglobin 30 pg (27-31); Mean Corpuscular Volume 89 fL (80-97); Mean Platelet Volume 7.6 fL (7.4-10.4); Platelet Count 232 10^3/ul (150-450); Red Blood Count 3.81 10^6/ul (4.00-5.40); Red Cell Distribution Width 14 % (10.5-15); White Blood Count 8.1 10^3/ul (3.5-10.8)
[2018-09-13] MEDS ORDERED: ZOSYN 3.375 GM x ONE DOSE over 30 miuntes IVPB ×2 (18:45)
[2018-09-13 18:57] LABS: INR 1.42 (0.77-1.02)
[2018-09-13 19:20] LABS: ABS Basophils 0 10^3/ul (0-0.2); ABS Eosinophils 0.1 10^3/ul (0-0.6); ABS Lymphocytes 0.8 10^3/ul (1.0-4.8); ABS Monocytes 0.4 10^3/ul (0-0.8); ABS Neutrophils 6.7 10^3/ul (1.5-7.7); ABS Nucleated RBC 0 10^3/ul; Eosinophil % 0.9 %; Nucleated Red Blood Cells % 0
[2018-09-13] MEDS: NS 0.9% 1000 ML* 1,000 ML IV SCH (19:49)
[2018-09-13] MEDS: Ondansetron INJ* 2 MG/ML VIAL IV PRN (20:02)
--- NOTE | 2018-09-13 21:09 | CONS ---
CC: Dr. Khan.* CONSULTATION REPORT: DATE OF CONSULT: 09/13/18 REQUESTING PHYSICIAN: Dr. Shipley. INDICATION: Increased liver function tests. NARRATIVE: Mrs. Potts is a very pleasant 48-year-old female who has a history of obesity, recent UTI, hypertension, asthma, anxiety, depression, who presents with dark urine and eyes. The patient states approximately a week ago, she went to see her primary care physician and had a urine check that revealed urinary tract infection. She was started on Bactrim. She has never had Bactrim before. She states approximately 3 to 4 days later, she started feeling under the weather. She felt like she had the flu, had muscle aches and cramps, nausea, vomiting and then her urine started turning dark a few days after that, which is yesterday, she developed right upper quadrant pain. She then presented to the emergency room. She states that she has been having fevers and chills. In the emergency room, she was found to have increased liver function tests and she had an ultrasound, which showed cholelithiasis. At this point, she is feeling better. PAST MEDICAL HISTORY: Please see the HPI. PAST SURGICAL HISTORY: She had a D and C. MEDICATIONS: No medications. ALLERGIES: NKDA FAMILY HISTORY: Hypertension, asthma. SOCIAL HISTORY: Occasional alcohol. No tobacco. REVIEW OF SYSTEMS: Twelve systems were reviewed, other than that mentioned in the HPI were unremarkable. PHYSICAL EXAMINATION: Temperature is 102, blood pressure is 127/67, O2 sat 97% , respiratory rate 16, pulse 120. General: Well-appearing female, in no apparent distress, alert, oriented, pleasant, fluent. HEENT: Mucous membranes are moist without lesions, ulcers, or exudate. Neck is supple. Trachea is midline. Head is normocephalic, atraumatic. She does have scleral icterus. Heart: Regular rate and rhythm, tachy. Lungs: Clear to auscultation bilaterally. No wheezes, rales, or rhonchi. Abdomen is obese. Positive bowel sounds. Soft. Very mild right upper quadrant tenderness. No rebound. No guarding. No masses were felt. Extremities: No lower extremity edema, rashes, or ulcers. Musculoskeletal: No CVA or spinal tenderness to palpation. DIAGNOSTIC STUDIES/LAB DATA: Abdominal ultrasound reveals cholelithiasis with positive Anaya sign, possibility of acute cholecystitis cannot be excluded, mild extrahepatic ductal dilatation is present. Labs of note, white count is 8.1, hemoglobin is 11.5, platelets are 232. INR is 1.42, up from 1.33. Chemistry panel shows a sodium of 133. Her bilirubin is 3.7, AST is 84, ALT is 184, alk phos is 491. Troponin is 0.004. ASSESSMENT AND PLAN: A 48-year-old female with cholelithiasis and increased LFTs. I do wonder if she could have a stone stuck in her common bile duct or potentially cholecystitis. Her white count is normal. She is febrile. She clinically really does not appear in any distress at all and actually is feeling better. I would recommend at this point we obtain an MRCP. Additionally, I wonder if the Bactrim could be contributing to some of her LFT abnormalities. She took her last dose yesterday. We will await the results of the MRCP to determine whether or not she needs an ERCP. She is on Zosyn prophylactically. She is n.p.o. right now. She has a CT pending. She can have liquids afterwards. She needs to be n.p.o. after midnight for her MRCP. We will continue to follow along. [id number]/[facility] #: [id number] [facility]
--- NOTE | 2018-09-13 21:09 | HP ---
ADMITTING HISTORY AND PHYSICAL: DATE OF ADMISSION: 09/13/18 CHIEF COMPLAINT: Influenza-like illness. HISTORY OF PRESENT ILLNESS: The patient is a 48-year-old lady with history of hypertension and bipolar disorder, who started having some suprapubic discomfort and was subsequently diagnosed with UTI about a week prior to admission and was then started on Bactrim for this. Two days after starting the antibiotic, she mentioned that she started developing "flu-like" symptoms consisting of nausea, vomiting, fevers and chills and possibly some abdominal discomfort, although she does not qualify this as abdominal pain. She also mentioned that her highest temperature that she was able to measure at home was 104 degrees Fahrenheit. She then subsequently developed some maculopapular rashes on her bilateral lower extremities, but nowhere else. She denies any pruritus of the area. Persistence of her signs and symptoms as well fever today led to her presentation in the ED. In the ED, she was found to have a temperature of 102 F and was given Tylenol, aspirin, Benadryl, normal saline bolus of about 3 L, ondansetron, Rocephin, and Zosyn. PAST MEDICAL HISTORY: Benign essential hypertension, bipolar 1 disorder, seasonal allergies. PAST SURGICAL HISTORY: Status post D and C back in December of 2016. HOME MEDICATIONS: 1. Cetirizine 10 mg p.o. daily p.r.n. 2. Aripiprazole 2 mg p.o. q.p.m. 3. Lamotrigine 200 mg p.o. q.h.s. 4. Quetiapine 150 mg p.o. q.h.s. 5. Albuterol HFA inhaler 2 puffs inhalation q.6 p.r.n. 6. Methylphenidate 72 mg p.o. daily. 7. Lisinopril 10 mg p.o. daily. 8. Montelukast 10 mg p.o. daily. 9. Fluticasone nasal spray 2 sprays to both nares p.r.n. ALLERGIES: NKDA. FAMILY HISTORY: Significant for colon cancer in her mother who at the age of 59 and has history of hypertension. SOCIAL HISTORY: The patient mentioned that she has never smoked, but consumes about 3 to 4 glasses of wine weekly. Exercises on a regular basis and caffeine intake is normal. REVIEW OF SYSTEMS: Nausea, vomiting, fevers, and chills as described above. Denied any headaches, abdominal pain, diarrhea. Mentions that she might actually have been more constipated than having any diarrhea. Denies any myalgias at this time, although she did have some myalgias prior when her symptoms started. Denies any throat pain. Maculopapular rash described above in the lower extremity, but this seems to be fading per the patient. PHYSICAL EXAMINATION GENERAL APPEARANCE: The patient is awake, alert, and oriented x3, not in acute distress. VITAL SIGNS: Reveal the most recent vital signs of record with blood pressure of 101/67, heart rate of 106 per minute from 110, 118 and 117 respectively, 95% saturation on room air, 16 per minute respiratory rate. HEENT: Normocephalic, atraumatic. PERRLA. Extraocular muscles intact. NECK: Soft, supple with no cervical lymphadenopathy, no JVD. CHEST: Clear to auscultation bilaterally. Good air entry. No wheezes, rales, or rhonchi. HEART: S1, S2, slightly tachycardic. No murmurs, rubs, or gallops. ABDOMEN: Soft, nondistended, tender in the epigastric area, but point of maximal tenderness is on the right upper quadrant. Negative Anaya's on my exam. No rebound tenderness. Normoactive bowel sounds x4 quadrants. EXTREMITIES: No cyanosis, clubbing, or edema. PSYCHIATRIC: No active psychosis, depression, suicidal or homicidal ideation. SKIN: Warm to touch with maculopapular erythematous rash. Slightly jaundiced on exam, but no icterus. DIAGNOSTIC STUDIES/LAB DATA: Most recent and pertinent laboratory data drawn shows CBC with a WBC that is normal, H and H that is normal, platelets are normal. ESR, however, is elevated at 51. INR of 1.33, fibrinogen of 434.7. Sodium and potassium shows 133, normal potassium, BUN and creatinine were found to be normal, GFR was found to be 68.6. LFTs were found to be mildly elevated with a total bilirubin of 3.7, AST of 84, ALT of 184, alkaline phosphatase of 491. Troponin is mildly elevated at 0.04. BNP of 92. Influenza screen is found to be negative. Imaging studies available at the time of dictation shows abdominal ultrasound showing cholelithiasis with positive sonographic Anaya's sign, possibility of acute cholecystitis could not be excluded with mild extrahepatic ductal distention. Chest x-ray shows no active cardiopulmonary disease. EKG shows sinus tachycardia at a rate of 120 per minute. ASSESSMENT AND PLAN: The patient is a 48-year-old lady with history of bipolar disorder and hypertension, who was recently treated with Bactrim for urinary tract infection, presenting today with high-grade fever possibly due to mild-to- moderate cholangitis. 1. [id number] cholangitis. I doubt that she has cholecystitis at this time given that she does not have a positive Anaya's sign on my physical exam, although this was positive sonographically when the abdominal ultrasound was done. I have spoken with Dr. Rogers, who values the actual physical exam data more than the sonographic evidence and hence we will defer. Given her symptomatic cholelithiasis, will also defer with surgery for any plans for cholecystectomy. I have also spoken and touch based with Dr. Guadalupe, who agreed that the patient might have [id number] cholangitis and likely being masked by the Bactrim that she has been prescribed for urinary tract infection. It is possible that the urinary tract infection may have caused some bacteremia and may have caused some cholangitis given her presence of cholelithiasis. At this point, we will obtain a CT with contrast of the abdomen and pelvis to look for dilatation of the biliary tree and if nothing is found, we will consider MRCP tomorrow. We will place her on Zosyn and IV fluids as discussed. 2. Mild sepsis. Please see above discussion, likely secondary to cholangitis, likely preceded and seeded by previous urinary tract infection. 3. Mildly elevated troponins, likely secondary to sepsis. Please see above discussion. 4. Bipolar disorder, stable. Continue quetiapine, aripiprazole, and lamotrigine. 5. Hypertension. Continue lisinopril and we will continue watchful waiting. 6. DVT prophylaxis: We will place the patient on heparin q.8 subcu. 7. Disposition: As above. [id number]/[facility] #: [id number] [facility]
--- NOTE | 2018-09-13 21:09 | CONS ---
CC: Amena Paulson NP * SURGICAL CONSULTATION NOTE: DATE OF CONSULT: 09/13/18 ATTENDING SURGEON: Dr. Landry Rogers. CHIEF COMPLAINT: Abdominal pain, nausea, vomiting, fever. HISTORY OF PRESENT ILLNESS: This is a 48-year-old female who reports initially experiencing some lower abdominal discomfort about 2 weeks ago for which she was diagnosed as having UTI. She states that urinalysis was suggestive and a subsequent culture from 09/03/18 did grow greater than 100,000 colonies of group B strep. She is near completion of a course of Bactrim DS. For the past 5 to 7 days, however, she has been feeling worse with fevers as high as 103.5, persistent nausea, anorexia, and vomiting, as well as dark urine. Abdominal pain is not a primary complaint at the present time, but rather her nausea. She has also developed a rash of both lower extremities, primarily in the anterior tibial areas, but extending to just above the knees. She states that it is not pruritic, but is somewhat tender to palpation. There is a positive family history of gallbladder disease in her brother. She did undergo laparoscopic wedge resection of a tubulovillous adenoma with high-grade dysplasia, but clear margins by Dr. Mark in April 2017. Her postoperative course was unremarkable and she has not had any interval problems. PAST MEDICAL HISTORY: Bipolar disorder, ADD, hypertension, asthma and allergies , obesity. PAST SURGICAL HISTORY: Previous surgeries include the above noted colon surgery and prior D and C. CURRENT MEDICATIONS: Include: 1. Quetiapine. 2. Aripiprazole. 3. Lamotrigine. 4. Methylphenidate. 5. Lisinopril. 6. Montelukast. 7. Albuterol MDI p.r.n. 8. She also uses fluticasone nasal spray p.r.n., but not of late. DRUG ALLERGIES: None known. FAMILY HISTORY: Mother apparently of a PE, but also with advanced colon cancer. No other family history of VTE. No family history of anesthesia problems or bleeding disorders. SOCIAL HISTORY: The patient lives with her partner. She is employed in IT at [employer]. She denies use of tobacco. She drinks on average 2 drinks per week. She denies other recreational drug use. REVIEW OF SYSTEMS: General: Constitutional symptoms as noted above, see HPI. HEENT: No other additional problems reported other than that she is very dry and feels thirsty. Cardiovascular: No history of chest pain or palpitations. She is treated for hypertension. No history of murmur. Respiratory: No recent exacerbations of her asthma. No cough or shortness of breath. GI: As above per HPI. She states that she has been constipated of late, but stools have been otherwise of normal color, just small. Tubulovillous adenoma with high-grade dysplasia as noted above. : As above, urine has been dark. Endocrine: No diabetes or thyroid dysfunction. Neuro/Psych: As above. No additions. Remainder of review of systems is negative. PHYSICAL EXAMINATION: Height 5 feet 6 inches, weight 240 pounds, BMI 38.7, temperature 102, and blood pressure 101/67, pulse 106, respirations 16, room air saturation 95%. General: Well-nourished, obese female, in no acute distress, though intermittently complaining of nausea. She otherwise appears comfortable. Skin: Warm and dry. There are multiple ill-defined maculopapular lesions of the lower extremities measuring on average between 1 and 3 cm in greatest dimension. They are scattered over the lower extremities and are mildly tender to palpation. They do not appear consistent with urticaria. HEENT : Pupils are equal, round, and reactive. EOMs intact. Conjunctivae pink. Sclerae mildly icteric. Oropharynx: Mucous membranes dry. Teeth in good repair. Neck: No lymphadenopathy, thyromegaly, or masses. Heart: Regular rate and rhythm, mildly tachycardic. No murmur appreciated. Lungs: Clear to auscultation. No rales or wheezes. Breasts: Not examined. Abdomen: Well- healed surgical scars. Obese, nondistended. Bowel sounds active. Soft with mild tenderness across the upper abdomen, but especially in the right upper quadrant with an equivocal Anaya sign. The remainder of the abdomen is soft and nontender without palpable masses or organomegaly. Genitalia and Rectal: Not done. Back: No spinous processes or CVA tenderness. Extremities: No edema. Rash as noted above. Neurological: Grossly intact. DIAGNOSTIC STUDIES/LAB DATA: White blood cell count 7.9, hemoglobin 12.7, sedimentation rate or ESR 51. Lactic acid is normal at 1.2. Procalcitonin is mildly elevated at 0.6. Total bilirubin 3.7, AST 84, ALT 184, alkaline phosphatase 491. Troponin mildly elevated at 0.04. BNP normal at 92. Ultrasound of the right upper quadrant shows multiple gallstones, but without gallbladder wall thickening or pericholecystic fluid. The common bile duct is dilated at 0.8 cm and the report described a positive Anaya sign. IMPRESSION: Acute cholecystitis with choledocholithiasis, possible cholangitis. PLAN: The patient is being admitted to the hospitalist service with plans for IV hydration, IV antibiotics (Zosyn), pain and nausea control. She will have repeat lab work in the morning and possibly a MRCP. There is a CT scan ordered for this evening, though I am not sure of the indication. The patient understands that she may need ERCP before ultimately undergoing cholecystectomy. We will follow up closely with you. Case was briefly discussed with Dr. Rogers. INEZ CAM [id number]/SHAHAB #: [id number] MELLO
[2018-09-13] MEDS: ARIPiprazole TAB* 2 MG PO SCH (22:15)
[2018-09-13] MEDS: QUEtiapine TAB* 100 MG PO SCH (22:17)
[2018-09-13] MEDS: Heparin VIAL(*) 5000 UNITS/ML VIAL (FIVE THOUSAND) SUBCUT SCH (22:17)
[2018-09-13] MEDS: lamoTRIgine TAB(*) 100 MG PO SCH (22:17)
[2018-09-13] MEDS: Fluticasone NASAL SPRAY 50MCG* 16 gm SPRAY BTL BOTH NARES PRN (23:39)
[2018-09-13] MEDS: Piperacillin/Tazobac ADVAN(*) 3.375 GM in NS 0.9% 100 ML* 100 ML IVPB SCH (23:45)
[2018-09-14] MEDS: Benzonatate CAP* 100 MG PO PRN ×2 (04:28→13:53)
[2018-09-14 05:39] LABS: Hematocrit 32 % (35-47); Mean Corpuscular HGB Conc 34 g/dl (31-36); Mean Corpuscular Hemoglobin 31 pg (27-31); Mean Corpuscular Volume 90 fL (80-97); Mean Platelet Volume 7.4 fL (7.4-10.4); Platelet Count 215 10^3/ul (150-450); Red Cell Distribution Width 14 % (10.5-15); White Blood Count 9.1 10^3/ul (3.5-10.8)
[2018-09-14] MEDS: Heparin VIAL(*) 5000 UNITS/ML VIAL (FIVE THOUSAND) SUBCUT SCH ×3 (05:46→20:42)
[2018-09-14 05:56] LABS: INR 1.39 (0.77-1.02)
[2018-09-14 05:59] LABS: EGFR Non-African American 82.5 (>60)
[2018-09-14] MEDS: Montelukast Sodium TAB* 10 MG PO SCH (08:11)
[2018-09-14] MEDS: Methylphenidate ER TAB* 18 MG PO SCH (08:11)
[2018-09-14] MEDS: Acetaminophen TAB* 325 MG PO PRN ×2 (08:11→18:43)
[2018-09-14] MEDS: Piperacillin/Tazobac ADVAN(*) 3.375 GM in NS 0.9% 100 ML* 100 ML IVPB SCH ×2 (08:12→15:18)
[2018-09-14] MEDS: NS 0.9% 1000 ML* 1,000 ML IV SCH ×2 (08:13→18:44)
[2018-09-14] MEDS: Lisinopril TAB* 10 MG PO SCH (09:15)
[2018-09-14] MEDS ORDERED: KCL 20 MEQ/100 ML IVPREMIX* 20 MEQ/100 ML BAG IV ONE (09:27)
[2018-09-14] MEDS ORDERED: Magnesium Sulf 4 GM/100 ML IV* 4,000 MG/100 ML BAG IVPB ONE (09:27)
--- NOTE | 2018-09-14 10:16 | PN ---
Progress Note - Progress Note Date of Service: 09/14/18 SOAP: Subjective: Pt seen and examined. Chart reviewed. Case d/w Fransisco Vasquez. Pt feeling a little better with admission, abx rash and joint pain at legs b/l neck pain, thirsty and hungry Objective: Temp Pulse Resp BP Pulse Ox 98.3 F 114 16 96/69 97 09/14/18 07:18 09/14/18 07:18 09/14/18 07:43 09/14/18 07:18 09/14/18 07:43 a and o x3, nad abdo: soft/ ND/ tender at RUQ w/o murphys o rebound; no hernia no cva tendernss ext: edema, rash MRCP erviewed labs reviewed with elevated LFTs, nl wbc U/S reviewed; GS and sludge Assessment: symptomatic cholelithiasis, possible marrizzi's syndrome vs bactrim induced liver pathology Plan: I have recommended lap precious and intraoperative cholangiogram. However, first we will get a fractionated bilirubin; there remains a concern regarding Bactrim induced liver pathology- in which case, we can hold off surgical intervention. R/B/A discussed with pt regarding surgery and pts questions were answered.
[2018-09-14] MEDS ORDERED: Buffered Lidocaine 0.9% SYRIN* 5 ML/SYR SYRINGE INTRADERM ONE (10:25)
[2018-09-14] MEDS: Oxymetazoline 0.05% NASAL SPR* 15 ML BTL BOTH NARES SCH ×2 (11:49→20:42)
[2018-09-14] MEDS ORDERED: Potassium Chlor TAB* 20 MEQ TAB.ER PO ONE (12:00)
[2018-09-14] MEDS: Albuterol HFA INHALER* 8 gm MDI INH PRN (13:59)
[2018-09-14] MEDS: ARIPiprazole TAB* 2 MG PO SCH (16:46)
[2018-09-14] MEDS: GuaiFENesin DM* 5 ML UDC PO SCH ×2 (16:46→20:48)
--- NOTE | 2018-09-14 18:45 | PN ---
Subjective Date of Service: 09/14/18 Interval History: Pt seen and examined. Meds and labs reviewed. CC: Feels better and wants to start eating; nasal congestion she gets seasonally during winter ROS: Denied COHEN/dizziness, F/C, N/V, CP, SOB, sputum production, abd pain, diarrhea, constipation, dysuria, myalgias, arthralgias, throat pain, and new skin lesions. The rest of the 14 point ROS are unremarkable. PHYSICAL EXAM: GEN APPEARANCE: Awake, not in acute distress HEENT: NC/AT, PERRLA, moist oral mucosa, (-) throat erythema NECK: Soft, supple, (-) cervical LAD, (-)JVD HEART: S1S2 WNL, RRR, No MRG CHEST: CTA, BL, GAE, No W/R/R ABD: Soft, ND/NT, NABS 4x Q EXT: No C/C/E SKIN: Warm to touch, BLLE maculopapular rash improved PSYCH: No active psychosis, hallucinations, depression, SI/HI Objective Active Medications: Acetaminophen (Tylenol Tab*) 650 mg PO Q6H PRN PRN Reason: Pain/Fever Last Admin: 09/14/18 08:11 Dose: 650 mg Albuterol (Ventolin Hfa Inhaler*) 2 puff INH Q6H PRN PRN Reason: WHEEZING Last Admin: 09/14/18 13:59 Dose: 2 puff Aripiprazole (Abilify Tab*) 2 mg PO QPM GIORGI Last Admin: 09/14/18 16:46 Dose: 2 mg Benzonatate (Tessalon Cap*) 100 mg PO BID PRN PRN Reason: COUGH Last Admin: 09/14/18 13:53 Dose: 100 mg Citric Acid/Sodium Citrate (Bicitra*) 15 ml PO ONCE ONE Stop: 09/15/18 06:01 Fluticasone Propionate (Flonase Nasal [place] 50mcg*) 2 spray BOTH NARES DAILY PRN PRN Reason: CONGESTION Last Admin: 09/13/18 23:39 Dose: 2 spray Guaifenesin/Dextromethorphan (Robitussin Dm*) 10 ml PO TID GIORGI Last Admin: 09/14/18 16:46 Dose: 10 ml Heparin Sodium (Porcine) (Heparin Vial(*)) 5,000 units SUBCUT Q8HR GIORGI Last Admin: 09/14/18 15:18 Dose: 5,000 units Hydromorphone HCl (Dilaudid Inj*) 0.5 mg IV SLOW PU Q6H PRN PRN Reason: PAIN Sodium Chloride (Ns 0.9% 1000 Ml*) 1,000 mls @ 125 mls/hr IV PER RATE [facility] Stop: 09/15/18 17:27 Lactated Ringer's (Lactated Ringers 1000 Ml Bag*) 1,000 mls @ 125 mls/hr IV PER RATE [facility] Lamotrigine (Lamictal Tab(*)) 200 mg PO BEDTIME [facility] Last Admin: 09/13/18 22:17 Dose: 200 mg Lidocaine/Sodium Bicarbonate (Buffered Lidocaine 0.9% Syrin*) 0.2 ml INTRADERM ONCE ONE Stop: 09/15/18 08:01 Lisinopril (Prinivil Tab*) 10 mg PO DAILY [facility] Last Admin: 09/14/18 09:15 Dose: Not Given Methylphenidate HCl (Concerta Er Tab*) 72 mg PO DAILY [facility] Last Admin: 09/14/18 08:11 Dose: 72 mg Montelukast Sodium (Singulair Tab*) 10 mg PO DAILY [facility] Last Admin: 09/14/18 08:11 Dose: 10 mg Ondansetron HCl (Zofran Inj*) 4 mg IV Q6H PRN PRN Reason: NAUSEA/VOMITING Last Admin: 09/13/18 20:02 Dose: 4 mg Oxymetazoline HCl (Afrin 0.05% Nasal [place]*) 2 spray BOTH NARES BID [facility] Stop: 09/17/18 11:29 Last Admin: 09/14/18 11:49 Dose: 2 spray Quetiapine Fumarate (Seroquel Tab*) 150 mg PO BEDTIME [facility] Last Admin: 09/13/18 22:17 Dose: 150 mg Vital Signs - 8 hr 09/14/18 09/14/18 11:24 15:16 Temperature 98.2 F 99.7 F Pulse Rate 108 125 Respiratory 20 16 Rate Blood Pressure 110/65 129/69 (mmHg) O2 Sat by Pulse 96 99 Oximetry Oxygen Devices in Use Now: None Result Diagrams: 09/14/18 05:12 09/14/18 05:12 Microbiology and Other Data: Microbiology 09/13/18 16:45 Urine Culture - Final Urine No Growth (<1,000 CFU/mL) 09/13/18 14:26 Blood Culture - Preliminary Blood Venous No Growth Day 1 09/13/18 14:26 Aerobic Blood Culture - Preliminary Blood Venous No Growth Day 1 Anaerobic Blood Culture - Preliminary No Growth Day 1 09/13/18 16:45 Influenza Types A,B Antigen - Final Nasal Specimen received for Influenza A/B Molecular testing Assess/Plan/Problems-Billing Assessment: - Patient Problems (1) Elevated LFTs Current Visit: Yes Status: Acute Code(s): R94.5 - ABNORMAL RESULTS OF LIVER FUNCTION STUDIES SNOMED Code(s): 293881369 Comment: -Given MRCP is otherwise unremarkable and given temporal sequence of events with pt having rashes, as well as pts clinical improvement with improvement of most LFTs---I feel that this is more consistent with DILI/drug-induced hepatitis with Bactrim rather than cholangitis symptoms masked by Bactrim -TB may still be rising today given it has the longest half life of LFTs and may not have reached its peak -Spoke with Dr. Alcazar and Collins who agrees with above -Will continue to observe for now and appreciate Dr. Miles placing pt on full liquid dietif pt continuous to improve and clinical picture remains consistent with above impression, will continue to advance diet as tolerated -RUQ tenderness resolved (2) SIRS (systemic inflammatory response syndrome) Current Visit: Yes Status: Acute Code(s): R65.10 - SIRS OF NON-INFECTIOUS ORIGIN W/O ACUTE ORGAN DYSFUNCTION SNOMED Code(s): 715221170 Comment: -Likely due to above -Blood Cx (-) x1 day -Urine Cx (-), finalized (3) Rash Current Visit: Yes Status: Acute Code(s): R21 - RASH AND OTHER NONSPECIFIC SKIN ERUPTION SNOMED Code(s): 091732985 Comment: #BLLE maculopapular rash: -Improved -Likely due to above (4) Troponin level elevated Current Visit: Yes Status: Acute Code(s): R74.8 - ABNORMAL LEVELS OF OTHER SERUM ENZYMES SNOMED Code(s): 979913307 Comment: -Likely due to transaminitis -No CP/SOB -Re-check levels in AM (5) Bipolar disorder Current Visit: Yes Status: Acute Comment: -Continue Quetiapine, aripiprazole, and lamotrigine (6) HTN (hypertension) Current Visit: Yes Status: Acute Code(s): I10 - ESSENTIAL (PRIMARY) HYPERTENSION SNOMED Code(s): 55697759 Comment: -Continue Lisinopril (7) DVT prophylaxis Current Visit: Yes Status: Acute Code(s): EVH6915 - SNOMED Code(s): 275907191 Comment: -Continue Heparin SQ q8H Status and Disposition: -As above -D/C when TB starts improving along with clinical S/S with at least 2 days (-) cultures
[2018-09-14] MEDS: QUEtiapine TAB* 100 MG PO SCH (20:40)
[2018-09-14] MEDS: lamoTRIgine TAB(*) 100 MG PO SCH (20:41)
[2018-09-14] MEDS: Ondansetron INJ* 2 MG/ML VIAL IV PRN (20:42)
[2018-09-15] MEDS: Benzonatate CAP* 100 MG PO PRN ×2 (02:36→17:30)
[2018-09-15] MEDS: Fluticasone NASAL SPRAY 50MCG* 16 gm SPRAY BTL BOTH NARES PRN (02:36)
[2018-09-15] MEDS: NS 0.9% 1000 ML* 1,000 ML IV SCH (03:02)
[2018-09-15 05:39] LABS: ABS Basophils 0 10^3/ul (0-0.2); ABS Eosinophils 0.2 10^3/ul (0-0.6); ABS Monocytes 0.6 10^3/ul (0-0.8); ABS Neutrophils 5.9 10^3/ul (1.5-7.7); ABS Nucleated RBC 0 10^3/ul; Eosinophil % 2.8 %; Hematocrit 31 % (35-47); Hemoglobin 10.5 g/dl (12.0-16.0); Lymphocyte % 12.8 %; Mean Corpuscular HGB Conc 34 g/dl (31-36); Mean Corpuscular Hemoglobin 30 pg (27-31); Mean Corpuscular Volume 89 fL (80-97); Mean Platelet Volume 7.6 fL (7.4-10.4); Nucleated Red Blood Cells % 0; Platelet Count 224 10^3/ul (150-450); Red Blood Count 3.48 10^6/ul (4.00-5.40); Red Cell Distribution Width 14 % (10.5-15); White Blood Count 7.7 10^3/ul (3.5-10.8)
[2018-09-15] MEDS: Heparin VIAL(*) 5000 UNITS/ML VIAL (FIVE THOUSAND) SUBCUT SCH ×3 (05:48→21:07)
[2018-09-15 05:57] LABS: EGFR Non-African American 104.7 (>60)
[2018-09-15] MEDS ORDERED: Sodium Citrate/Citric Acid* 15 ML UDC PO ONE (06:00)
[2018-09-15] MEDS ORDERED: Buffered Lidocaine 0.9% SYRIN* 5 ML/SYR SYRINGE INTRADERM ONE (08:00)
[2018-09-15] MEDS: Oxymetazoline 0.05% NASAL SPR* 15 ML BTL BOTH NARES SCH ×3 (09:32→21:17)
[2018-09-15] MEDS: GuaiFENesin DM* 5 ML UDC PO SCH ×3 (09:33→20:11)
[2018-09-15] MEDS: Montelukast Sodium TAB* 10 MG PO SCH (09:33)
[2018-09-15] MEDS: Methylphenidate ER TAB* 18 MG PO SCH (09:33)
[2018-09-15] MEDS: Lisinopril TAB* 10 MG PO SCH (09:34)
[2018-09-15 09:58] LABS: INR 1.29 (0.77-1.02)
--- NOTE | 2018-09-15 10:41 | PN ---
Progress Note - Progress Note Date of Service: 09/15/18 SOAP: Subjective: CC: rash HPI: 48 year old man with fever, rash, cough, elev LFT with mild abd pain; started about 48 hrs post bactrim for UTI. Today rash nearly gone, appetite is good, no abd pain. Some cough which is non productive, no dyspnea. Objective: Vital Signs Temp 36.9 C 09/15/18 07:26 Pulse 105 09/15/18 07:26 Resp 20 09/15/18 08:00 BP 120/71 09/15/18 07:26 Pulse Ox 94 09/15/18 08:00 Intake & Output 09/14/18 09/15/18 09/15/18 18:59 06:59 18:59 Intake Total 890 3066 Balance 890 3066 Intake: IV Fluids 200 2166 NS 2166 zosyn 200 IVPB 200 zosyn 200 Oral 690 700 Other: Estimated Void Large # Bowel Movements 0 # Voids 3 2 Gen:awake, no distress HEENT: no thrush or oral ulcers Heart:RRR no murmur Lungs:CTA BL Abd:+BS NTND soft, no RUQ tenderness Skin: fading red/purple patches on BL LE Laboratory Results - last 24 hr 09/14/18 09/15/18 09/15/18 10:41 05:21 05:21 WBC 7.7 RBC 3.48 L Hgb 10.5 L Hct 31 L MCV 89 MCH 30 MCHC 34 RDW 14 Plt Count 224 MPV 7.6 Neut % (Auto) 76.5 Lymph % (Auto) 12.8 Weld % (Auto) 7.5 Eos % (Auto) 2.8 Baso % (Auto) 0.4 Absolute Neuts (auto) 5.9 Absolute Lymphs (auto) 1.0 Absolute Monos (auto) 0.6 Absolute Eos (auto) 0.2 Absolute Basos (auto) 0 Absolute Nucleated RBC 0 Nucleated RBC % 0 INR (Anticoag Therapy) Sodium 133 L Potassium 3.5 Chloride 105 Carbon Dioxide 20 L Anion Gap 8 BUN 10 Creatinine 0.61 Est GFR ( Amer) 126.7 Est GFR (Non-Af Amer) 104.7 BUN/Creatinine Ratio 16.4 Glucose 120 H Calcium 7.8 L Phosphorus 1.8 L Magnesium 2.2 Total Bilirubin 3.90 H Direct Bilirubin 2.70 H AST 54 H ALT 124 H Alkaline Phosphatase 419 H Troponin I 0.16 H* Total Protein 5.4 L Albumin 2.9 L Globulin 2.5 Albumin/Globulin Ratio 1.2 Beta HCG, Quant < 0.60 09/15/18 09/15/18 08:32 09:32 WBC RBC Hgb Hct MCV MCH MCHC RDW Plt Count MPV Neut % (Auto) Lymph % (Auto) Weld % (Auto) Eos % (Auto) Baso % (Auto) Absolute Neuts (auto) Absolute Lymphs (auto) Absolute Monos (auto) Absolute Eos (auto) Absolute Basos (auto) Absolute Nucleated RBC Nucleated RBC % INR (Anticoag Therapy) 1.29 H Sodium Potassium Chloride Carbon Dioxide Anion Gap BUN Creatinine Est GFR ( Amer) Est GFR (Non-Af Amer) BUN/Creatinine Ratio Glucose Calcium Phosphorus Magnesium Total Bilirubin Direct Bilirubin AST ALT Alkaline Phosphatase Troponin I 0.10 H* Total Protein Albumin Globulin Albumin/Globulin Ratio Beta HCG, Quant Assessment: 1. Fever, rash, abnl LFT, cough; all can be due to bactrim side effect; improving 2. cholelithiasis 3. obesity Plan: 1. can try prednisone 20 mg for 3 days for ongoing airway inflammation which I suspect is causing her cough; recheck LFTs next week.
[2018-09-15] MEDS: Acetaminophen TAB* 325 MG PO PRN ×2 (11:48→21:06)
--- NOTE | 2018-09-15 12:58 | PN ---
Progress Note - Progress Note Date of Service: 09/15/18 SOAP: Subjective: Pt seen and examined. Feeling well. 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
[2018-09-15] MEDS ORDERED: Perflutren Lipid Microsphere* 3 ML VIAL ONE (14:54)
[2018-09-15] MEDS: ARIPiprazole TAB* 2 MG PO SCH (17:30)
--- NOTE | 2018-09-15 19:51 | PN ---
Subjective Date of Service: 09/15/18 Interval History: Pt seen and examined. Meds and labs reviewed. CC: Cough ROS: Denied COHEN/dizziness, F/C, N/V, CP, SOB, sputum production, abd pain, diarrhea, constipation, dysuria, myalgias, arthralgias, throat pain, and new skin lesions. The rest of the 14 point ROS are unremarkable. PHYSICAL EXAM: GEN APPEARANCE: Awake, not in acute distress HEENT: NC/AT, PERRLA, moist oral mucosa, (-) throat erythema NECK: Soft, supple, (-) cervical LAD, (-)JVD HEART: S1S2 WNL, RRR, No MRG CHEST: CTA, BL, GAE, No W/R/R ABD: Soft, ND/NT, NABS 4x Q EXT: No C/C/E SKIN: Warm to touch, BLLE maculo-papular rash almost resolved PSYCH: No active psychosis, hallucinations, depression, SI/HI Objective Active Medications: Acetaminophen (Tylenol Tab*) 650 mg PO Q6H PRN PRN Reason: Pain/Fever Last Admin: 09/15/18 11:48 Dose: 650 mg Albuterol (Ventolin Hfa Inhaler*) 2 puff INH Q6H PRN PRN Reason: WHEEZING Last Admin: 09/14/18 13:59 Dose: 2 puff Aripiprazole (Abilify Tab*) 2 mg PO QPM GIORGI Last Admin: 09/15/18 17:30 Dose: 2 mg Benzonatate (Tessalon Cap*) 100 mg PO BID PRN PRN Reason: COUGH Last Admin: 09/15/18 17:30 Dose: 100 mg Fluticasone Propionate (Flonase Nasal [place] 50mcg*) 2 spray BOTH NARES DAILY PRN PRN Reason: CONGESTION Last Admin: 09/15/18 02:36 Dose: 2 spray Guaifenesin/Dextromethorphan (Robitussin Dm*) 10 ml PO Q6H GIORGI Heparin Sodium (Porcine) (Heparin Vial(*)) 5,000 units SUBCUT Q8HR GIORGI Last Admin: 09/15/18 14:13 Dose: 5,000 units Hydromorphone HCl (Dilaudid Inj*) 0.5 mg IV SLOW PU Q6H PRN PRN Reason: PAIN Lactated Ringer's (Lactated Ringers 1000 Ml Bag*) 1,000 mls @ 125 mls/hr IV PER RATE [facility] Lamotrigine (Lamictal Tab(*)) 200 mg PO BEDTIME [facility] Last Admin: 09/14/18 20:41 Dose: 200 mg Lisinopril (Prinivil Tab*) 10 mg PO DAILY [facility] Last Admin: 09/15/18 09:34 Dose: Not Given Methylphenidate HCl (Concerta Er Tab*) 72 mg PO DAILY [facility] Last Admin: 09/15/18 09:33 Dose: 72 mg Montelukast Sodium (Singulair Tab*) 10 mg PO DAILY [facility] Last Admin: 09/15/18 09:33 Dose: 10 mg Ondansetron HCl (Zofran Inj*) 4 mg IV Q6H PRN PRN Reason: NAUSEA/VOMITING Last Admin: 09/14/18 20:42 Dose: 4 mg Oxymetazoline HCl (Afrin 0.05% Nasal [place]*) 2 spray BOTH NARES BID [facility] Stop: 09/17/18 11:29 Last Admin: 09/15/18 09:32 Dose: 2 spray Quetiapine Fumarate (Seroquel Tab*) 150 mg PO BEDTIME [facility] Last Admin: 09/14/18 20:40 Dose: 150 mg Vital Signs - 8 hr 09/15/18 15:15 Temperature 98.8 F Pulse Rate 105 Respiratory 24 Rate Blood Pressure 106/66 (mmHg) O2 Sat by Pulse 95 Oximetry Oxygen Devices in Use Now: None Result Diagrams: 09/15/18 05:21 09/15/18 05:21 Microbiology and Other Data: Microbiology 09/13/18 16:45 Urine Culture - Final Urine No Growth (<1,000 CFU/mL) 09/13/18 14:26 Blood Culture - Preliminary Blood Venous No Growth Day 1 09/13/18 14:26 Aerobic Blood Culture - Preliminary Blood Venous No Growth Day 1 Anaerobic Blood Culture - Preliminary No Growth Day 1 09/13/18 16:45 Influenza Types A,B Antigen - Final Nasal Specimen received for Influenza A/B Molecular testing Assess/Plan/Problems-Billing Assessment: - Patient Problems (1) Elevated LFTs Current Visit: Yes Status: Acute Code(s): R94.5 - ABNORMAL RESULTS OF LIVER FUNCTION STUDIES SNOMED Code(s): 205962295 Comment: -Given MRCP is otherwise unremarkable and given temporal sequence of events with pt having rashes, as well as pts clinical improvement with improvement of most LFTs---I feel that this is more consistent with DILI/drug-induced hepatitis with Bactrim rather than cholangitis symptoms masked by Bactrim -As suspected TB is now decreasing and may have already reached its peak -Spoke with Dr. Alcazar and Collins who agrees with above -Will continue to observe for now and appreciate Dr. Miles placing pt on full liquid dietif pt continuous to improve and clinical picture remains consistent with above impression, will continue to advance diet as tolerated -RUQ tenderness resolved -Advanced diet to low fat, heart healthy and will observe for tolerance -Sent the ff labs to further evaluate other causes of transaminitis: [place], hepatitis viral screen titers, EBV, HSV, HIV screen, anti-smooth muscle Ab, L/K Ab, SS-B/La Ab, RPR---which can all be followed up as outpatient -F/U w/Sx as oupt (2) Cough Current Visit: Yes Status: Acute Code(s): R05 - COUGH SNOMED Code(s): 55862065 Comment: -Will increase frequency of Robitussin DM for now -Continue Tessalon perles PRN -Consider low dose prednisone as advised by Dr. Alcazar if the above persists in AM (3) SIRS (systemic inflammatory response syndrome) Current Visit: Yes Status: Acute Code(s): R65.10 - SIRS OF NON-INFECTIOUS ORIGIN W/O ACUTE ORGAN DYSFUNCTION SNOMED Code(s): 888052891 Comment: -Resolved -Likely due to above -Blood Cx (-) x2 days -Urine Cx (-), finalized (4) Rash Current Visit: Yes Status: Acute Code(s): R21 - RASH AND OTHER NONSPECIFIC SKIN ERUPTION SNOMED Code(s): 561905067 Comment: #BLLE maculopapular rash: -Almost gone -Likely due to above (5) Troponin level elevated Current Visit: Yes Status: Acute Code(s): R74.8 - ABNORMAL LEVELS OF OTHER SERUM ENZYMES SNOMED Code(s): 974309912 Comment: -Likely due to transaminitis given its improvement closely follows decrease of LFTs -No CP/SOB (6) Bipolar disorder Current Visit: Yes Status: Acute Comment: -Continue Quetiapine, aripiprazole, and lamotrigine (7) HTN (hypertension) Current Visit: Yes Status: Acute Code(s): I10 - ESSENTIAL (PRIMARY) HYPERTENSION SNOMED Code(s): 32510059 Comment: -Continue Lisinopril (8) DVT prophylaxis Current Visit: Yes Status: Acute Code(s): [id number] - SNOMED Code(s): 510978611 Comment: -Continue Heparin SQ q8H Status and Disposition: -For D/C in AM if pt continues to improve and tolerates advancement of diet
--- NOTE | 2018-09-15 20:34 | ECHO ---
Patient: [facility] Rec#: [id number] : 1970 Date: 09/15/2018 Age: 48y Height: 168 cm / 66.1 in Weight: 109 kg / 240.2 lbs Sex: F BSA: 2.17 Room#: 432 Admit Date#: 09/13/2018 Type: Inpatient Referring: Philippe Shipley Reading: Shira Holcomb MD Electrician Substation: Adrienne House RDCS,RDMS CC: Swathi Khan MD Transthoracic Echocardiogram Indication: Elevated TROPS BP: 120/71 HR: 109 Rhythm: Tachycardia Findings History: SIRS, HTN Technical Comments: The study quality is fair. Left Ventricle: The left ventricular chamber size is normal. There is no left ventricular hypertrophy. There is a prominent septal knuckle. Left ventricular systolic function is at the lower limits of normal. Non contrast images suggest relative hypokinesis of the base of the posterior wall extending to the septum. Contrast images show low normal global hypokinesis. The estimated ejection fraction is 45-50%. Normal left ventricular diastolic filling is observed. Left Atrium: The left atrial chamber size is normal. Right Ventricle: The right ventricular chamber size and systolic function are within normal limits. Right Atrium: The right atrial cavity size is normal. Aortic Valve: The aortic valve is trileaflet. Systolic excursion of the aortic valve is normal. There is no evidence of aortic regurgitation. There is no evidence of aortic stenosis. Mitral Valve: The mitral valve leaflets appear normal. There is no evidence of mitral regurgitation. There is no evidence of mitral stenosis. Tricuspid Valve: The tricuspid valve leaflets are normal. There is trace tricuspid regurgitation. Unable to estimate the right ventricular systolic pressure. Pulmonic Valve: The pulmonic valve appears normal. There is a trace pulmonic regurgitation. Pericardium: There is no significant pericardial effusion. Aorta: The aortic root appears normal. There is no dilatation of the aortic arch. Pulmonary Artery: The main pulmonary artery is not well visualized. Venous: The inferior vena cava is dilated. There is less than 50% respiratory change in the inferior vena cava dimension. Contrast: Definity was used to optimize study. A total of 2 ml was used. Conclusions The left ventricular chamber size is normal. Left ventricular systolic function is at the lower limits of normal. Non contrast images suggest relative hypokinesis of the base of the posterior wall extending to the septum. Contrast images show low normal global hypokinesis. The estimated ejection fraction is 45-50%. The right ventricular chamber size and systolic function are within normal limits. All valves show normal function. There is no significant pericardial effusion. No prior echo to compare. Measurements Name Value Normal Range RVIDd (AP) 2D 3.1 cm (0.9 - 2.6) RVDdMajor (2D) 2.8 cm (2.2 - 4.4) RAd ISD 4CH 4.5 cm (3.4 - 4.9) RA (A4C)W 3.8 cm (2.9 - 4.6) IVSd (2D) 1.1 cm (0.6 - 1) LVPWd (2D) 1 cm (0.6 - 1) LVIDd (2D) 4.7 cm (3.6 - 5.4) LVIDs (2D) 4.1 cm - LV FS (2D) 13 % (25 - 45) Aortic Annulus 1.9 cm (1.4 - 2.6) Ao root diameter (2D) 3.1 cm (2.1 - 3.5) Ascending Ao 2.6 cm (2.1 - 3.4) Aortic arch 2.6 cm (1.8 - 3.4) LA dimension (AP) 2D 3.8 cm (2.3 - 3.8) LAd ISD 4CH 5.7 cm (2.9 - 5.3) LA ISD 4CH W 4.1 cm (2.5 - 4.5) Name Value Normal Range LA ESV BP (A/L) index 22 ml/m2 - Name Value Normal Range MV E-wave Vmax 0.9 m/sec - MV deceleration time 140 msec - MV A-wave Vmax 0.6 m/sec - MV E:A ratio 1.6 ratio - LV septal e' Vmax 0.08 m/sec - LV lateral e' Vmax 0.11 m/sec - LV E:e' septal ratio 11 ratio - LV E:e' lateral ratio 9 ratio - Name Value Normal Range AV Vmax 1.3 m/sec - AV VTI 22 cm - AV peak gradient 7 mmHg - AV mean gradient 4 mmHg - LVOT Vmax 1 m/sec - LVOT VTI 16 cm - LVOT peak gradient 4 mmHg - LVOT mean gradient 2 mmHg - CHAN Vmax 0.9 m/sec - Name Value Normal Range RAP 8 mmHg - IVC diameter 2.2 cm - Name Value Normal Range PV Vmax 0.8 m/sec - PV peak gradient 2.6 mmHg -
[2018-09-15] MEDS: QUEtiapine TAB* 100 MG PO SCH (21:05)
[2018-09-15] MEDS: lamoTRIgine TAB(*) 100 MG PO SCH (21:05)
[2018-09-15] MEDS: Ondansetron INJ* 2 MG/ML VIAL IV PRN (21:07)
[2018-09-15] MEDS: Albuterol HFA INHALER* 8 gm MDI INH PRN (21:19)
[2018-09-16] MEDS: GuaiFENesin DM* 5 ML UDC PO SCH ×3 (02:13→08:33)
[2018-09-16] MEDS: Albuterol HFA INHALER* 8 gm MDI INH PRN ×2 (04:02→10:16)
[2018-09-16] MEDS: Benzonatate CAP* 100 MG PO PRN ×2 (04:02→10:03)
[2018-09-16] MEDS: Heparin VIAL(*) 5000 UNITS/ML VIAL (FIVE THOUSAND) SUBCUT SCH (05:35)
[2018-09-16 08:34] LABS: ABS Basophils 0 10^3/ul (0-0.2); ABS Eosinophils 0.3 10^3/ul (0-0.6); ABS Lymphocytes 1.3 10^3/ul (1.0-4.8); ABS Monocytes 0.7 10^3/ul (0-0.8); ABS Neutrophils 5.3 10^3/ul (1.5-7.7); ABS Nucleated RBC 0 10^3/ul; Eosinophil % 3.9 %; Hematocrit 31 % (35-47); Hemoglobin 10.4 g/dl (12.0-16.0); Lymphocyte % 17.2 %; Mean Corpuscular HGB Conc 34 g/dl (31-36); Mean Corpuscular Hemoglobin 30 pg (27-31); Mean Corpuscular Volume 90 fL (80-97); Mean Platelet Volume 7.8 fL (7.4-10.4); Nucleated Red Blood Cells % 0; Platelet Count 270 10^3/ul (150-450); Red Blood Count 3.45 10^6/ul (4.00-5.40); Red Cell Distribution Width 14 % (10.5-15); White Blood Count 7.6 10^3/ul (3.5-10.8)
[2018-09-16] MEDS: Methylphenidate ER TAB* 18 MG PO SCH (08:34)
[2018-09-16] MEDS: Montelukast Sodium TAB* 10 MG PO SCH (08:34)
[2018-09-16] MEDS: Lisinopril TAB* 10 MG PO SCH (08:36)
[2018-09-16] MEDS: Oxymetazoline 0.05% NASAL SPR* 15 ML BTL BOTH NARES SCH (08:36)
[2018-09-16 08:44] LABS: INR 1.24 (0.77-1.02)
[2018-09-16 09:07] LABS: EGFR Non-African American 106.7 (>60)
[2018-09-16] MEDS ORDERED: methylPREDNISolone SOD 40 MG* 1 ML VIAL IV STA (11:50)
[2018-09-16] MEDS ORDERED: DOXYcycline CAP(*) 100 MG PO SCH (12:00)
[2018-09-16 12:43] VITALS: BP 113/67
--- NOTE | 2018-09-16 22:29 | DS ---
CC: Dr. Ramy Mena; Dr. Orlando; Dr. Rogers; Dr. Guadalupe; Dr. Balderas; Dr. Swathi Khan * DISCHARGE SUMMARY: DATE OF ADMISSION: DATE OF DISCHARGE: 09/16/18 DISCHARGE DIAGNOSES: 1. 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 2. Pneumonia versus pneumonitis due to inflammatory response to Bactrim due to above. DISCHARGE MEDICATIONS: 1. Tylenol 650 mg p.o. q.6 p.r.n. 2. Albuterol HFA inhaler 2 puffs inhalation q.6 p.r.n. 3. Aripiprazole 2 mg p.o. q.p.m. 4. Benzonatate 100 mg p.o. t.i.d. p.r.n. 5. Doxycycline 100 mg p.o. b.i.d. for 7 days. 6. Fluticasone nasal spray, 2 sprays to both nares p.r.n. 7. Robitussin DM 10 mL p.o. q.6 p.r.n. 8. Lamotrigine 200 mg p.o. q.h.s. 9. Lisinopril 10 mg p.o. daily. 10. Methylphenidate 72 mg p.o. daily. 11. Montelukast 10 mg p.o. daily. 12. Quetiapine 150 mg p.o. q.h.s. 13. Cetirizine 10 mg p.o. daily. 14. Floranex 2 tabs p.o. daily for 10 days. 15. Prednisone rapid taper. HISTORY OF PRESENT ILLNESS/HOSPITAL COURSE: The patient is a 48-year-old lady with a history of hypertension and bipolar disorder, who started having some suprapubic discomfort and was subsequently diagnosed with UTI a week prior to her admission and was then started on Bactrim for this. Two days after starting the antibiotic, she mentioned that she started developing flu- like symptoms consisting of nausea, vomiting, fevers, and chills, possibly some abdominal discomfort, although she does not qualify this as an abdominal pain and her presentation is more of flu-like symptoms than pain. She also mentioned that her highest temperature that she was able to measure was 104 degrees Fahrenheit at home; however, when she did eventually present to the ED, she was found to have a temperature of 102 and was initially thought to have cholangitis. However, upon review of the temporal sequence of events as well as a negative MRCP along with presentation of rashes, we have discontinued her Zosyn, which was initially given on admission and observed her during her hospital course. Her LFTs have improved; however, they have slightly risen and the patient was developing some low-grade fever prior to her discharge, but appears otherwise nonseptic and uninfected. Her blood cultures have been negative for 3 days and has been ruled out for influenza and no other focus of infection has been found. During her hospitalization stay, she developed nonproductive cough and on repeat chest x-ray prior to her discharge, it appears that there are new trace bilateral pleural effusions and some small left basilar infiltrates, which could mean that she has developed a pneumonia versus pneumonitis as part of her reaction to Bactrim. She will be placed on 7 days of doxycycline b.i.d. along with a rapid prednisone taper for this, although the literature is equivocal in regards of use of steroids in patients with drug-induced liver injury while some authorities advocate for some steroid treatment. ESR and CRP have been drawn prior to her discharge, which she will repeat on her repeat blood draw as an outpatient followup. She had been advised to follow up and/or call her PCP within 3 days post discharge and to follow up with Dr. Orlando or Dr. Guadalupe within 1 week post discharge and to call their office to make and/or confirm an appointment. She was also advised to follow up with both Dr. Rogers and Dr. Balderas within 1 week post discharge. She was advised to talk to her primary care and dietitian to lose some weight in a healthy manner and to avoid any medications containing sulfa, Bactrim/TMP- SMX/trimethoprim-sulfa. She had been advised that reexposure to this medication can cause more severe hepatic presentation than the one she experienced. If her symptoms resume or develops new ones, she was advised to call her PCP first and if her PCP cannot entertain her due to scheduling issues alone, to call [facility] if the issue is considered nonemergent. She was advised to call my office regarding any questions, concerns, or further clarifications regarding her discharge plans and/or prescriptions and to take her medications as prescribed. REVIEW OF SYSTEMS: Nonproductive cough as described above. Denied any headaches, dizziness. Although she does not feel febrile, her temperature is starting to rise and hence will be placed on prednisone as described above. Denies any increase in sputum production, abdominal pain, diarrhea, constipation , myalgias, arthralgias, throat pain, or new skin lesions. The rest of the 14- point review of systems is otherwise unremarkable. PHYSICAL EXAMINATION: Shows the most recent vital signs of records with blood pressure of 113/67, 98.8 degrees Fahrenheit, 103 per minute heart rate from 104 and 105, 14 per minute respiratory rate, saturating at 96% on room air. General Appearance: The patient is awake, alert, and oriented x3, not in acute distress. HEENT: Normocephalic, atraumatic. PERRLA. Extraocular muscles intact. Negative for icterus. Moist oral mucosa. Negative throat erythema. Neck is soft, supple with no cervical lymphadenopathy, no JVD. Heart: S1, S2 within normal limits. Regular rate and rhythm. No murmurs, rubs, or gallops. Slightly tachycardic. Chest is clear to auscultation bilaterally. Good air entry. No wheezes, rales, or rhonchi. Abdomen is soft, nondistended, nontender. Normoactive bowel sounds x4 quadrants. Extremities: No cyanosis, clubbing, or edema. Psychiatric: No active psychosis, depression, suicidal or homicidal ideation. Skin is warm to touch. TIME SPENT: The total time spent evaluating the patient, reviewing pertinent data, and appropriate documentation is 65 minutes. [id number]/[facility] #: [id number] MELLO
== END 2018-09-16 16:45 | disposition home or self-care (01) | DRG 441 ==
LOC: ED 13:27 → MEDTELE 17:06
PROVIDERS: ADMIT Student in an Organized Health Care Education/Training Program; ATTEND Student in an Organized Health Care Education/Training Program
DX: S36.118A Other injury of liver, initial encounter (principal); J18.9 Pneumonia, unspecified organism; J90 Pleural effusion, not elsewhere classified; R65.10 Systemic inflammatory response syndrome (SIRS) of non-infectious origin without acute organ dysfunction; I10 Essential (primary) hypertension; F31.9 Bipolar disorder, unspecified; R74.8 Abnormal levels of other serum enzymes; F41.9 Anxiety disorder, unspecified; J45.909 Unspecified asthma, uncomplicated; E66.9 Obesity, unspecified; K80.20 Calculus of gallbladder without cholecystitis without obstruction; R23.8 Other skin changes; F98.8 Other specified behavioral and emotional disorders with onset usually occurring in childhood and adolescence; T37.0X5A Adverse effect of sulfonamides, initial encounter; T37.8X5A Adverse effect of other specified systemic anti-infectives and antiparasitics, initial encounter; T36.8X5A Adverse effect of other systemic antibiotics, initial encounter; J30.2 Other seasonal allergic rhinitis; R21 Rash and other nonspecific skin eruption; Z79.52 Long term (current) use of systemic steroids; Z80.0 Family history of malignant neoplasm of digestive organs; Z82.49 Family history of ischemic heart disease and other diseases of the circulatory system; Z82.5 Family history of asthma and other chronic lower respiratory diseases; Z72.89 Other problems related to lifestyle; Z68.38 Body mass index [BMI] 38.0-38.9, adult; Z87.01 Personal history of pneumonia (recurrent)
CPT/HCPCS: 36415; 71046; 74181; 76376; 76705; 80053; 81003; 81015; 82247; 82248; 82550; 82565; 83605; 83735; 83880; 84100; 84145; 84484; 84520; 84702; 85025; 85027; 85384; 85610; 85652; 85730; 86038; 86141; 86235; 86255; 86376; 86592; 86663; 86705; 86803; 87040; 87086; 87340; 87389; 93005; 93306; 99284; A9270-GY; C8929; G0475; J0696; J1644; J2405; J2543; J2920; J3475

== ENCOUNTER → 2018-12-17 17:58 | Emergency (ER) | payer OTHER ==
[~2018-12-17 17:58] MED LIST changes: -Buffered Lidocaine 0.9% SYRIN* 5 ML/SYR SYRINGE INTRADERM ONE; -Dexamethasone TAB* 4 MG PO ONE; -ERTApenem(*) 1 GM in NS 0.9% 50 ML* 50 ML IVPB SCH; -Famotidine IV* 10 MG/ML 2 ML (20 mg) IV ONE; +Morphine 10 MG/ML VIAL (1 ml) IV ONE; -Morphine INJ* 2 MG/ML 1 ML SYRINGE IV PRN; +NS 0.9% 1000 ML** 1,000 ML IV ONE; +Ondansetron INJ* 2 MG/ML VIAL IV ONE; -PROCHLORPERAZINE INJ 5 MG/ML 2 ML VIAL IV PRN
--- NOTE | 2018-12-17 18:07 | ED ---
Abdominal Pain/Female - HPI Summary HPI Summary: 48 yo female presents to the ED with complaints of RUQ pain that began around 1500 today. She tells me that she thinks this is a "gallbladder attack". She has had this pain in the past about 2-3 months ago, but never this bad. A workup was done confirming gallstones at that time and she was planning on scheduling an elective lap precious for this summer. The pain today began about 1- 2 hours after eating (1300). She has vomited/dry heaved about 5 times since that time. Pain is not improving. She has not had anything to eat or drink since 1300. She denies fever, chills, SOB, chest pain. - History of Current Complaint Chief Complaint: EDAbdPain Stated Complaint: CHEST PAIN PER PT Time Seen by Provider: 12/17/18 18:05 Hx Obtained From: Patient Hx Last Menstrual Period: 2012 Onset/Duration: Sudden Onset Severity Initially: Severe Severity Currently: Severe Pain Intensity: 9 Location: Discrete At: RUQ Radiates: Yes Radiates to: Back Allergies/Adverse Reactions: Allergies Allergy/AdvReac Type Severity Reaction Status Date / Time sulfamethoxazole Allergy Severe Drug-induced Verified 12/17/18 18:04 [From Bactrim] Liver Injury trimethoprim [From Bactrim] Allergy Severe Drug-induced Verified 12/17/18 18:04 Liver Injury Sulfa (Sulfonamide Allergy bactrim Verified 12/17/18 18:04 Antibiotics) attacted liver, lungs and skin SEASONAL Allergy Congestion Uncoded 12/06/18 11:51 PMH/Surg Hx/FS Hx/Imm Hx Endocrine/Hematology History: Denies: Hx Diabetes, Hx Thyroid Disease Cardiovascular History: Reports: Hx Hypertension - on meds Denies: Hx Pacemaker/ICD, Other Cardiovascular Problems/Disorders Respiratory History: Reports: Hx Asthma - inhalers, Other Respiratory Problems/ Disorders - severe post nasal drip, can sometimes cause n/v Denies: Hx Chronic Obstructive Pulmonary Disease (COPD) GI History: Denies: Hx Ulcer, Other GI Disorders Musculoskeletal History: Reports: Other Musculoskeletal History - broken neck C- 4, as a child, one of only a few pts to ambulate after Sensory History: Reports: Hx Contacts or Glasses - glasses Denies: Hx Hearing Aid Opthamlomology History: Reports: Hx Contacts or Glasses - glasses Neurological History: Denies: Other Neuro Impairments/Disorders Psychiatric History: Reports: Hx Anxiety - on meds, Hx Depression - on meds, Hx Bipolar Disorder Denies: Hx Panic Disorder - Cancer History Hx Chemotherapy: No Hx Radiation Therapy: No - Surgical History Surgery Procedure, Year, and Place: D&C 2016. polypectomy from colon 2017 , [facility] Hx Anesthesia Reactions: No - Immunization History Date of Tetanus Vaccine: Unk Date of Influenza Vaccine: Unk Infectious Disease History: No Infectious Disease History: Denies: Hx Hepatitis, Hx Human Immunodeficiency Virus (HIV), History Other Infectious Disease, Traveled Outside the [place] in Last 30 Days - Family History Known Family History: Positive: Hypertension, Other - Asthma Family History: no known cardiovascular disease - Social History Alcohol Use: Weekly Alcohol Amount: 2-3 per week Substance Use Type: Reports: None Hx Tobacco Use: No Smoking Status (MU): Never Smoked Tobacco Review of Systems Constitutional: Negative Eyes: Negative ENT: Negative Cardiovascular: Negative Respiratory: Negative Positive: Abdominal Pain, Vomiting, Nausea Genitourinary: Negative Skin: Negative Neurological: Negative Psychological: Normal All Other Systems Reviewed And Are Negative: Yes Physical Exam - Summary Physical Exam Summary: GENERAL: Mild pain distress. SKIN: No rashes, sores, lesions, or open wounds. NECK: Supple. Nontender. No lymphadenopathy. CHEST: CTAB. No r/r/w. No accessory muscle use. Breathing comfortably and in no distress. CV: RRR. Without m/r/g. Pulses intact. Cap refill <2seconds ABDOMEN: Soft. Moderate TTP RUQ. POSITIVE anaya sign. No distention or guarding. No CVA tenderness. Bowel sounds present NEURO: Alert. PSYCH: Age appropriate behavior. Triage Information Reviewed: Yes Vital Signs On Initial Exam: Initial Vitals Temp Pulse Resp BP Pulse Ox 98.4 F 82 20 169/98 100 12/17/18 18:00 12/17/18 18:00 12/17/18 18:00 12/17/18 18:00 12/17/18 18:00 Vital Signs Reviewed: Yes Diagnostics - Vital Signs Vital Signs Temp Pulse Resp BP Pulse Ox 12/17/18 18:00 98.4 F 82 20 169/98 100 - Laboratory Lab Results: Laboratory Tests 12/17/18 12/17/18 12/17/18 18:23 18:23 18:23 WBC 8.4 RBC 4.62 Hgb 14.1 Hct 42 H MCV 90 MCH 31 MCHC 34 RDW 14 Plt Count 356 MPV 7.3 L Neut % (Auto) 66.0 Lymph % (Auto) 26.0 Cottle % (Auto) 6.0 Eos % (Auto) 1.4 Baso % (Auto) 0.6 Absolute Neuts (auto) 5.5 Absolute Lymphs (auto) 2.2 Absolute Monos (auto) 0.5 Absolute Eos (auto) 0.1 Absolute Basos (auto) 0.1 Absolute Nucleated RBC 0 Nucleated RBC % 0 Sodium 141 Potassium 4.0 Chloride 105 Carbon Dioxide 28 Anion Gap 8 BUN 18 Creatinine 0.98 H Est GFR ( Amer) 73.3 Est GFR (Non-Af Amer) 60.6 BUN/Creatinine Ratio 18.4 Glucose 111 H Lactic Acid 1.5 Calcium 10.2 Total Bilirubin 0.50 AST 19 ALT 31 Alkaline Phosphatase 113 H Total Protein 7.3 Albumin 4.6 Globulin 2.7 Albumin/Globulin Ratio 1.7 Lipase 65 Result Diagrams: 12/17/18 18:23 12/17/18 18:23 Lab Statement: Any lab studies that have been ordered have been reviewed, and results considered in the medical decision making process. Re-Evaluation - Re-Evaluation First Eval Re-Evaluation Time: 19:59 Change: Improved Comment: Discussed US results with pt. Feeling better s/p Morphine x2. Pain down from 11/10 to 7/10. Abdominal Pain Fem Course/Dx - Course Course Of Treatment: US: IMPRESSION: There are echogenic calculi in the gallbladder lumen consistent with. cholelithiasis and the gallbladder wall is mildly thickened measuring 3.5 mm. and there was positive sonographic Anaya sign therefore suspicious for acute. cholecystitis. Suspect her pain is due to cholelithiasis. The pt had good improvement of her symptoms s/p morphine and zofran. She has not been febrile and there is no leukocytosis - therefore suspicion for acute cholecystitis is low at this time. I discussed the case with surgery (as below) and then discussed the options with the pt. She did not want to be admitted and prefers to go home and f/u with Gen surg outpatient. She will be discharged with antibiotics, pain medication, and outpatient f/u with general surgery. Strongly advised to return to the ED if she develops a fever or if her pain returns. Avoid fatty foods. - Diagnoses Provider Diagnoses: Cholelithiasis, Biliary pain - Provider Notifications Discussed Care Of Patient With: Payam Mark Time Discussed With Above Provider: 20:45 - Discussed case with Dr. Mark of surgery who advised pt can be admitted with anbx and possible cholecystectomy on 12/20. If pt does not want to be admitted, advised po anbx and to call his office thursday for f/u. Return to ED if she develops a fever or if pain returns. Discharge - Sign-Out/Discharge Documenting (check all that apply): Patient Departure Patient Received Moderate/Deep Sedation with Procedure: No - Discharge Plan Condition: Stable Disposition: HOME Prescriptions: Amoxicillin/Clavulanate TAB* [Augmentin TAB 875*] 875 mg PO BID #14 tab Hydrocodone/Acetaminophen [[place] 5-325 Tablet] 1 each PO Q6H PRN #12 tablet MDD 4 PRN Reason: Pain Patient Education Materials: Biliary Colic (ED), Gallstones (ED) Referrals: Swathi Khan MD [Primary Care Provider] - Additional Instructions: If you develop a fever, shortness of breath, chest pain, new or worsening symptoms - please call your PCP or go to the ED. Your blood pressure was high at todays visit. Please see your primary provider within 4 weeks for recheck and re-evaluation. Please call Dr. Mark' office on Thursday for further follow up. Avoid foods that are high in fat as these may worsen your symptoms. If you develop a fever or if the pain returns - please return to the ED. - Billing Disposition and Condition Condition: STABLE Disposition: Home
--- OUTSIDE RECORDS SUMMARY | 2018-12-17 18:09 | XMS REPORT | Continuity of Care Document ---
:1970 External Reference #:[id number] Author Name Harsh Orlando MD Address [facility] [place] [address] Care Team Providers Name Role Phone Swathi Khan MD Care Team Information Superintendent Plant [employer] Unavailable Swathi Khan MD Primary Care Physician Unavailable Payers Date Identification Numbers Payment Provider Subscriber Policy Number: [id number] [employer] Number: [id number] [address] PayID: [id number] [place] [address] Advance Directives Description No Information Available Problems Date Description Provider Status Onset: 08/02/2015 Essential hypertension Amena Paulson NP Active Onset: 05/06/2012 Benign essential hypertension Amena Paulson NP Active Onset: 05/06/2012 Bipolar I disorder Amena Paulson NP Active Onset: 09/23/2018 Inflammatory disease of liver Harsh Orlando MD Active Onset: 09/23/2018 History of polyp of colon Harsh Orlando MD Active Onset: 09/23/2018 Liver function tests abnormal Harsh Orlando MD Active Family History Date Family Member(s) Observation Comments Onset: (age 59 Years) Mother Colon Cancer Social History Type Date Description Comments Sex Unknown Tobacco Use Start: Unknown Patient has never smoked Smoking Status Reviewed: 09/23/18 Patient has never smoked Allergies, Adverse Reactions, Alerts Description No Known Drug Allergies Medications Medication Date Status Form Strength Qnty SIG Indications Ordering Provider Fluticasone 08/02/ Active Suspension 50mcg/Act 16uni 1 sprays J30.9 Varn,Karo Propionate 2014 ts each KIMBERLY quinteros nostril daily as needed Lisinopril 01/19/ Active Tablets 10mg 30tab take 1 Varn,Karo 2015 s tablet neli,TAX STAFF ACCOUNTANT every day Concerta / Active Tablets ER 36mg 30tab Take two Unknown 0000 s tabs once daily Seroquel / Active Tablets 300mg 30tab take Unknown 0000 s one-half tablet by mouth at bedtime Lamotrigine / Active Tablets 200mg take one Unknown 0000 Dispers tablet by mouth at hs Abilify / Active Tablets 2mg 1 by Unknown 0000 mouth every night Singulair / Active Tablets 10mg 1 by Unknown 0000 mouth every day Colyte With 07/18/ Hx Solution 240gm 4000m by mouth Yusef Mace Flavor Packs 2015 - Rec l as Ryland MANDUJANO 09/02/ directed 2018 Levocetirizine 08/02/ Hx Tablets 5mg 30tab 1 by J30.9 Karo Paulson Dihydrochloride 2014 - s mouth KIMBERLY quinteros 09/23/ every day 2018 Immunizations CPT Code Status Date Vaccine Lot # [id number] Given 08/02/2015 Influenza Virus Vaccine, Quadrivalent, Split, Preservative Free [id number] Given 07/18/2009 Tetanus, Diphtheria Toxoids/Acellular Pertussis Vaccine 7 Or > Vital Signs Date Vital Result Comment 09/23/2018 2:57pm Height 66 inches 5'6" Weight 240.00 lb BP Systolic 133 mmHg BP Diastolic 86 mmHg Heart Rate 97 /min BMI (Body Mass Index) 38.7 kg/m2 07/21/2018 4:31pm Height 66 inches 5'6" Weight 240.00 lb BMI (Body Mass Index) 38.7 kg/m2 07/18/2016 3:58pm Height 66 inches 5'6" Weight 240.00 lb BMI (Body Mass Index) 38.7 kg/m2 Results Test Date Facility Test Result H/L Range Note Laboratory test [facility] Anti Nuclear 0.2 U 1, 2 finding 8 Antibody CMP(!) [facility] Sodium(!) 136 mEq/L 134- 149 8 [facility] [place] [address] [phone] Potassium(!) 4.0 mEq/L 3.6-5.5 Chloride Serum/Plasma(!) 106 mEq/L 94-112 Carbon Dioxide Ser/Plasm(!) 25 mEq/L 21-33 BUN - Urea Nitrogen(!) 20 mg/dL 6-24 Calcium Ser/Plasma Mass/Vol(!) 9.0 mg/dL 8.6-10.2 Creatinine Serum Mass/Vol(!) 0.8 mg/dL 0.5-1.4 Glucose Serum(!) 135 mg/dL High 70-105 BUN/Creatinine Ratio(!) 25 RATIO 8.0-36 Albumin Serum/Plasma(!) 4.0 g/dL 3.5-5.2 Alkaline Phosphatase(!) 278 U/L High 39-117 Bilirubin Total Mass/Vol 1.6 mg/dL High 0.2-1.3 Ast - Sgot 25 U/L 5-34 Alt - SGPT 70 U/L High 10-40 Protein Total 6.2 g/dL 6.2-8.1 CMP, Magnesium, 09/16/2018 [facility] Magnesium Ser/Plasma <pending> Phosphorus Mass/Vol Phosphorus <pending> CMP(!) 09/16/2018 [facility] Sodium(!) <pending> Potassium(!) <pending> Chloride Serum/Plasma(!) <pending> Carbon Dioxide Ser/Plasm(!) <pending> BUN - Urea Nitrogen(!) <pending> Calcium Ser/Plasma Mass/Vol(!) <pending> Creatinine Serum Mass/Vol(!) <pending> Glucose Serum(!) <pending> BUN/Creatinine Ratio(!) <pending> Albumin Serum/Plasma(!) <pending> Alkaline Phosphatase(!) <pending> Bilirubin Total Mass/Vol(!) <pending> Ast - Sgot <pending> Alt - SGPT <pending> Protein Total <pending> Laboratory test 09/16/2018 [facility] Inr(!) <pending> finding CBC W/Auto 09/16/2018 [facility] White Blood Count <pending> Differential(!) Ser Auto CNT RBC Red Blood Count <pending> Hemoglobin Blood <pending> Hematocrit <pending> MCV (Corpuscular Volume) <pending> MCH (Corpuscular Hemoglobin) <pending> MCHC (Corpuscular Hemog Conc) <pending> RDW <pending> Platelet Count Blood Auto CNT <pending> MPV <pending> Lymph% <pending> [place]% <pending> Neutrophil % <pending> Absolute Lymphocytes <pending> Absolute Monocytes <pending> Absolute Neutrophils <pending> Xray 09/16/2018 [facility]iology Chest PA & Lat 2 VWS <pending> CBC W/Auto 09/15/2018 [facility] White Blood Count <pending> Differential(!) Ser Auto CNT RBC Red Blood Count <pending> Hemoglobin Blood <pending> Hematocrit <pending> MCV (Corpuscular Volume) <pending> MCH (Corpuscular Hemoglobin) <pending> MCHC (Corpuscular Hemog Conc) <pending> RDW <pending> Platelet Count Blood Auto CNT <pending> MPV <pending> Lymph% <pending> [place]% <pending> Neutrophil % <pending> Absolute Lymphocytes <pending> Absolute Monocytes <pending> Absolute Neutrophils <pending> Laboratory test finding 09/15/2018 [facility] Inr(!) <pending> CMP(!) 09/15/2018 [facility] Sodium(!) <pending> Potassium(!) <pending> Chloride Serum/Plasma(!) <pending> Carbon Dioxide Ser/Plasm(!) <pending> BUN - Urea Nitrogen(!) <pending> Calcium Ser/Plasma Mass/Vol(!) <pending> Creatinine Serum Mass/Vol(!) <pending> Glucose Serum(!) <pending> BUN/Creatinine Ratio(!) <pending> Albumin Serum/Plasma(!) <pending> Alkaline Phosphatase(!) <pending> Bilirubin Total Mass/Vol(!) <pending> Ast - Sgot <pending> Alt - SGPT <pending> Protein Total <pending> CMP, Magnesium, 09/15/2018 [facility] Magnesium Ser/Plasma <pending> Phosphorus Mass/Vol Phosphorus <pending> Laboratory test 09/15/2018 [facility] Syphilis Serology <pending> finding CMP, Magnesium, 09/14/2018 [facility] Magnesium <pending> Phosphorus Ser/Plasma Mass/Vol Phosphorus <pending> CMP(!) 09/14/2018 [facility] Sodium(!) <pending> Potassium(!) <pending> Chloride Serum/Plasma(!) <pending> Carbon Dioxide Ser/Plasm(!) <pending> BUN - Urea Nitrogen(!) <pending> Calcium Ser/Plasma Mass/Vol(!) <pending> Creatinine Serum Mass/Vol(!) <pending> Glucose Serum(!) <pending> BUN/Creatinine Ratio(!) <pending> Albumin Serum/Plasma(!) <pending> Alkaline Phosphatase(!) <pending> Bilirubin Total Mass/Vol(!) <pending> Ast - Sgot <pending> Alt - SGPT <pending> Protein Total <pending> Laboratory test finding 09/14/2018 [facility] Inr(!) <pending> CBC No Diff 09/14/2018 [facility] Hematocrit <pending> Hemoglobin Blood <pending> Platelet Count Blood Auto CNT <pending> RBC Red Blood Count <pending> RDW <pending> White Blood Count Ser Auto CNT <pending> MCH (Corpuscular Hemoglobin) <pending> MCHC (Corpuscular Hemog Conc) <pending> MPV <pending> MCV (Corpuscular Volume) <pending> Xray 09/13/2018 [facility] Radiology Chest PA & Lat 2 VWS <pending> Xray 09/13/2018 [facility] Radiology US Abdomen Limited <pending> CBC W/Auto 09/13/2018 [facility] White Blood Count Ser <pending> Differential(!) Auto CNT RBC Red Blood Count <pending> Hemoglobin Blood <pending> Hematocrit <pending> MCV (Corpuscular Volume) <pending> MCH (Corpuscular Hemoglobin) <pending> MCHC (Corpuscular Hemog Conc) <pending> RDW <pending> Platelet Count Blood Auto CNT <pending> MPV <pending> Lymph% <pending> [place]% <pending> Neutrophil % <pending> Absolute Lymphocytes <pending> Absolute Monocytes <pending> Absolute Neutrophils <pending> Rapid Influenza A & B 09/13/2018 [facility] Influenza A Molecular NEGATIVE Negative 3 Molecular Influenza B Molecular NEGATIVE Negative Ua Microscopic(!) 09/13/2018 [facility] Ua WBC <pending> Ua RBC <pending> Ua Epithelial Cells <pending> Ua Crystals <pending> Ua Bacteria <pending> Ua Mucous <pending> Ua Amorphous <pending> Ua Yeast <pending> Ua Casts <pending> CMP(!) 09/13/2018 [facility] Sodium(!) <pending> Potassium(!) <pending> Chloride Serum/Plasma(!) <pending> Carbon Dioxide Ser/Plasm(!) <pending> BUN - Urea Nitrogen(!) <pending> Calcium Ser/Plasma Mass/Vol(!) <pending> Creatinine Serum Mass/Vol(!) <pending> Glucose Serum(!) <pending> BUN/Creatinine Ratio(!) <pending> Albumin Serum/Plasma(!) <pending> Alkaline Phosphatase(!) <pending> Bilirubin Total Mass/Vol(!) <pending> Ast - Sgot <pending> Alt - SGPT <pending> Protein Total <pending> Laboratory test finding 09/13/2018 [facility] Troponin I <pending> CPK-Creatinine Kinase(!) <pending> Laboratory test 09/13/2018 [facility] Inr(!) <pending> finding CBC W/Auto 09/13/2018 [facility] White Blood Count <pending> Differential(!) Ser Auto CNT RBC Red Blood Count <pending> Hemoglobin Blood <pending> Hematocrit <pending> MCV (Corpuscular Volume) <pending> MCH (Corpuscular Hemoglobin) <pending> MCHC (Corpuscular Hemog Conc) <pending> RDW <pending> Platelet Count Blood Auto CNT <pending> MPV <pending> Lymph% <pending> [place]% <pending> Neutrophil % <pending> Absolute Lymphocytes <pending> Absolute Monocytes <pending> Absolute Neutrophils <pending> Laboratory test 01/15/2017 [facility] Surgical SEE RESULT 4 finding Interface Order BELOW CBC Auto Diff 03/20/2016 N2N/CCD Import Abs Basophils 0 10^3/uL 0-0.2 Abs Eosinophils 0.1 10^3/uL 0-0.6 Abs Lymphocytes 1.7 10^3/uL 1.0-4.8 Abs Monocytes 0.4 10^3/uL 0-0.8 Abs Neutrophils 3.6 10^3/uL 1.5-7.7 Abs Nucleated RBC 0 10^3/uL Basophil % 0.7 % 0-2 Eosinophil % 2.5 % 0-6 Granulocyte % 61.2 % 38-83 Hematocrit 40 % 35-47 Hemoglobin 13.3 g/dL 12.0-16.0 Lymphocyte % 29.3 % 25-47 Mean Corpuscular HGB Conc 33 g/dL 31-36 Mean Corpuscular Hemoglobin 30 pg 27-31 Mean Corpuscular Volume 91 fL 80-97 Mean Platelet Volume 8 um3 7.4-10.4 Monocyte % 6.3 % 1-9 Nucleated Red Blood Cells % 0 Platelet Count 238 10^3/uL 150-450 Red Blood Count 4.41 10^6/uL 4.0-5.4 Red Cell Distribution Width 13 % 10.5-15 White Blood Count 5.9 10^3/uL 3.5-10.8 Laboratory test 03/20/2016 N2N/[employer] Import FSH (Follicle Stim 40.3 mIU/mL 5 finding Hormone) TSH (Thyroid Stim Horm) 1.17 ?IU/mL 0.34-5.60 Laboratory test finding 07/30/2015 N2N/[employer] Import Albumin 4.0 g/dL 3.2- 5.2 Albumin/Globulin Ratio 1.8 1-3 Alkaline Phosphatase 62 U/L 34-104 Alt 14 U/L 7-52 Anion Gap 5 mmol/L 2-11 Ast 13 U/L 13-39 BUN/Creatinine Ratio 20.7 High 8-20 Blood Urea Nitrogen 18 mg/dL 6-24 Calcium 9.1 mg/dL 8.6-10.3 Chloride 106 mmol/L 101-111 Co2 Carbon Dioxide 28 mmol/L 22-32 Creatinine 0.87 mg/dL 0.51-0.95 Egfr 90.6 >60 Egfr Non- 70.4 >60 Globulin 2.2 g/dL 2-4 Glucose 86 mg/dL 70-100 Potassium 4.0 mmol/L 3.5-5.0 Sodium 139 mmol/L 133-145 TSH (Thyroid Stim Horm) 1.35 ?IU/mL 0.34-5.60 Total Bilirubin 0.50 mg/dL 0.2-1.0 Total Protein 6.2 g/dL Low 6.4-8.9 Lipid Profile (Trig/Chol/HDL) 07/30/2015 N2N/CCD Import Cholesterol 199 mg/ dL HDL Cholesterol 54.1 mg/dL LDL Cholesterol 134 mg/dL Triglycerides 55 mg/dL Laboratory test 11/07/2013 N2N/CCD Import Rapid Influenza A (See Note) finding B Antigen Urinalysis 11/07/2013 N2N/CCD Import Urine Appearance Clear Urine Bilirubin Negative Negative Urine Blood Negative Negative Urine Color Charisma Urine Esterase Trace Negative Urine Glucose Negative mg/dL Negative Urine Ketones Trace mg/dL Negative Urine Nitrate Negative Negative Urine Protein Trace mg/dL Negative Urine Specific [place] 1.036 High 1.010-1.030 Urine Urobilinogen Negative E.U./dL Negative Urine pH 6.0 5-9 Urine Microscopic 11/07/2013 N2N/CCD Import Bacteria Urine 2+ None Seen Urine Epithelial Cells 2+ Squamous /hpf None Seen Urine Mucus Present /lpf Absent Urine WBC 1+ (<10 /hpf) None Seen Laboratory test finding 11/07/2013 N2N/CCD Import Albumin 4.5 g/dL 3.6- 5.4 Albumin/Globulin Ratio 1.3 1-3 Alkaline Phosphatase 73 U/L 30-110 Alt 24 U/L 14-54 Anion Gap 10.0 mmol/L 2-11 Ast 18 U/L 12-42 BUN/Creatinine Ratio 32.9 High 8-20 Blood Urea Nitrogen 23 mg/dL 6-24 C Reactive Protein 2.6 mg/dL High Less than 0.5 Calcium 9.4 mg/dL 8.1-9.9 Chloride 107 mmol/L 101-111 Co2 Carbon Dioxide 24.0 mmol/L 22-32 Creatinine 0.70 mg/dL 0.50-1.40 Egfr 117.5 >60 Egfr Non- 91.3 >60 Globulin 3.4 g/dL 2-4 Glucose 136 mg/dL High 70-100 Lamotrigine 2.9 ug/mL 2.5 - 15.0 Magnesium 1.9 mg/dL 1.7-2.6 Potassium 3.2 mmol/L Low 3.5-5.0 Sodium 141 mmol/L 133-145 Total Bilirubin 0.9 mg/dL 0.4-1.5 Total Protein 7.9 g/dL 6.2-8.1 CBC Auto Diff 11/07/2013 N2N/CCD Import Abs Neutrophils 9.4 10^3/uL High 1.5-7.7 Abs Nucleated RBC 0 10^3/uL Hematocrit 46 % 35-47 Hemoglobin 15.7 g/dL 12.0-16.0 Mean Corpuscular HGB Conc 34 g/dL 31-36 Mean Corpuscular Hemoglobin 31 pg 27-31 Mean Corpuscular Volume 90 fL 80-97 Mean Platelet Volume 8 um3 7.4-10.4 Platelet Count 255 10^3/uL 150-450 Red Blood Count 5.14 10^6/uL 4.0-5.4 Red Cell Distribution Width 13 % 10.5-15 White Blood Count 10.0 10^3/uL 4.8-10.8 Manual Differential 11/07/2013 N2N/CCD Import Band % 2 % 0-8 Basophil % 1 % 0-2 Lymphocytes % 1 % Low 25-47 Monocytes % 3 % 0-13 Neutrophil % 92 % High 38-83 RBC Morphology Normal Normal Reactive Lymph % 1 % 0-6 1 [id number] 2 REFERENCE VALUE <=1.0 (Negative) Test Performed by: [facility] [employer] [address] [place] [address] 3 Strategic Client Executive: [id number] SEE RESULT BELOW Name: YRN JO : [address]: Yusef Marcelino MD Acct: [id number] Unit: [id number] AGE: 46 Location: ENDO Re01/15/17 SEX: F Status: DEP REF SPEC: [id number] DIRK: 01/15/17-1519 [facility] DR: Yusef Marcelino MD REQ: [id number] RECD: 01/15/17 STATUS: PILY LAMB DR: Amena Paulson TAX STAFF ACCOUNTANT _ ORDERED: LEVEL IV/2 FINAL DIAGNOSIS 1. Colon, sigmoid, biopsy: -- Tubular adenoma. -- No high-grade dysplasia or malignancy. 2. Colon, right, biopsy: -- Tubulovillous adenoma. -- No high grade dysplasia or malignancy. CLINICAL HISTORY Family history - mother POST-OPERATIVE DIAGNOSIS Colonoscopy into terminal ileum, prep good - 2 polyps - one large sessile polyp (approximately 4 cm) in right colon biopsied and tattooed, one small polyp in sigmoid removed, mild sigmoid diverticulosis. Conclusions/Plan: Two polyps GROSS DESCRIPTION 1. The specimen is received in formalin labeled, Sigmoid Colon Polyp, and consists of a 0.5 x 0.4 x 0.3 cm brown-pink polypoid soft tissue fragment and a 1.1 by up to 0.6 x 0.1 cm brown-white irregular to polypoid soft tissue fragment. The specimen is differentially inked, serially sectioned and entirely submitted in one cassette. 2. The specimen is received in formalin labeled, Large Right Colon Polyp, and consists of four brown-pink irregular to polypoid soft tissue fragments aggregating 1.2 by up to 0.5 by up to 0.3 cm, which are entirely submitted in one cassette. Signed (signature on file) Batool Mcclendon MD 1509 END OF REPORT * ML=Testing performed at Main Lab DEPARTMENT OF PATHOLOGY, [address] [place] [address] Juan David Denis M.D. Director [facility] # [id number] SEE RESULT BELOW Name: YRN JO : [address]: Yusef Marcelino MD Acct: [id number] Unit: [id number] AGE: 46 Location: ENDO Re01/15/17 SEX: F Status: DEP REF SPEC: [id number] DIRK: 01/15/17-1519 [facility] DR: Yusef Marcelino MD REQ: [id number] RECD: 01/15/17 STATUS: PILY LAMB DR: Amena Paulson TAX STAFF ACCOUNTANT _ ORDERED: LEVEL IV/2 FINAL DIAGNOSIS 1. Colon, sigmoid, biopsy: -- Tubular adenoma. -- No high-grade dysplasia or malignancy. 2. Colon, right, biopsy: -- Tubulovillous adenoma. -- No high grade dysplasia or malignancy. CLINICAL HISTORY Family history - mother POST-OPERATIVE DIAGNOSIS Colonoscopy into terminal ileum, prep good - 2 polyps - one large sessile polyp (approximately 4 cm) in right colon biopsied and tattooed, one small polyp in sigmoid removed, mild sigmoid diverticulosis. Conclusions/Plan: Two polyps GROSS DESCRIPTION 1. The specimen is received in formalin labeled, Sigmoid Colon Polyp, and consists of a 0.5 x 0.4 x 0.3 cm brown-pink polypoid soft tissue fragment and a 1.1 by up to 0.6 x 0.1 cm brown-white irregular to polypoid soft tissue fragment. The specimen is differentially inked, serially sectioned and entirely submitted in one cassette. 2. The specimen is received in formalin labeled, Large Right Colon Polyp, and consists of four brown-pink irregular to polypoid soft tissue fragments aggregating 1.2 by up to 0.5 by up to 0.3 cm, which are entirely submitted in one cassette. Signed (signature on file) Batool Mcclendon MD 1509 END OF REPORT * ML=Testing performed at Main Lab DEPARTMENT OF PATHOLOGY, [address] [place] [address] Juan David Denis M.D. Director [facility] # [id number] 5 Normally menstruating females - Follicular phase 3 - 9 - Mid-cycle peak 4 - 23 - Luteal phase 1 - 6 Postmenopausal females 16 - 114 Procedures Date Code Description Status 11/02/2018 51204 Moderate Sedation Services; Same Phys Intl 15 Mins; PT >=5 Completed Years 11/02/2018 71204 Colonoscopy Completed 01/15/2017 92541 Moderate Sedation Services; Same Phys Each Additional 15 Completed Mins 01/15/2017 51368 Moderate Sedation Services; Same Phys Each Additional 15 Completed Mins 01/15/2017 70595 Moderate Sedation Services; Same Phys Each Additional 15 Completed Mins 01/15/2017 71559 Moderate Sedation Services; Same Phys Each Additional 15 Completed Mins 01/15/2017 12744 Moderate Sedation Services; Same Phys Intl 15 Mins; PT >=5 Completed Years 01/15/2017 78306 Colonoscopy W/ Snare RM Of Polyp/Tumor/Lesion Completed 01/15/2017 19897 Colonoscopy With Sub.Injection Completed 01/15/2017 93066 Colonscopy+Biopsy Completed Encounters Type Date Location Provider Dx Diagnosis Office Visit 09/23/2018 [facility] Sotelo R94.5 Abnormal results 2:[facility]p [facility] MD of liver function studies Z86.010 Personal history of colonic polyps T36.8x5A Adverse effect of other systemic antibiotics, init encntr 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 Her bilirubin continues to improve however her other transaminases have increased just a littlebit. I would like to repeat these early next week. She will come by the office on [place] EveZ86.010 Personal history of colonic polypsComments:She is scheduled for her [id number] Adverse effect of other systemic antibiotics, initial [id number] Toxic liver disease, unspecifiedComments:See above for discussion of drug-induced liver disease, if her LFTs do not continue to improve we may need to consider a liver biopsy
[2018-12-17 18:34] LABS: ABS Basophils 0.1 10^3/ul (0-0.2); ABS Eosinophils 0.1 10^3/ul (0-0.6); ABS Lymphocytes 2.2 10^3/ul (1.0-4.8); ABS Monocytes 0.5 10^3/ul (0-0.8); ABS Neutrophils 5.5 10^3/ul (1.5-7.7); ABS Nucleated RBC 0 10^3/ul; Eosinophil % 1.4 %; Hematocrit 42 % (33-41); Hemoglobin 14.1 g/dL (12.0-16.0); Mean Corpuscular HGB Conc 34 g/dL (31-36); Mean Corpuscular Hemoglobin 31 pg (27-31); Mean Corpuscular Volume 90 fL (80-97); Mean Platelet Volume 7.3 fL (7.4-10.4); Nucleated Red Blood Cells % 0; Platelet Count 356 10^3/uL (150-450); Red Blood Count 4.62 10^6 /uL (3.70-4.87); Red Cell Distribution Width 14 % (10.5-15); White Blood Count 8.4 10^3/uL (3.5-10.8)
[2018-12-17 18:48] LABS: Albumin 4.6 g/dL (3.2-5.2); Albumin/Globulin Ratio 1.7 (1-3); BUN/Creatinine Ratio 18.4 (8-20); Calcium 10.2 mg/dL (8.6-10.3); EGFR African American 73.3 (>60); EGFR Non-African American 60.6 (>60); Globulin 2.7 g/dL (2-4); Total Bilirubin 0.5 mg/dL (0.2-1.0); Total Protein 7.3 g/dL (6.4-8.9)
[2018-12-17 21:28] VITALS: BP 126/93
== END | disposition home or self-care (01) ==
LOC: ED 17:58
DX: K80.20 Calculus of gallbladder without cholecystitis without obstruction (principal); I10 Essential (primary) hypertension; J45.909 Unspecified asthma, uncomplicated; F41.9 Anxiety disorder, unspecified; F31.9 Bipolar disorder, unspecified; Z88.2 Allergy status to sulfonamides
CPT/HCPCS: 36415; 71045; 76705; 80053; 83605; 83690; 85025; 96361; 96374; 96375; 96376; 99282; J2270; J2405

== ENCOUNTER 2019-01-05 19:36 | Emergency (ER) | payer OTHER ==
[2019-01-05] MEDS ORDERED: Pantoprazole TAB * 40 MG TAB PO ONE (19:58)
[2019-01-05] MEDS ORDERED: Famotidine TAB* 20 MG PO ONE (19:58)
[2019-01-05] MEDS ORDERED: Sucralfate TAB* 1 GM PO ONE (19:58)
[2019-01-05] MEDS ORDERED: Lidocaine 2% VISCOUS* 15 ML UDC PO ONE (19:58)
[2019-01-05] MEDS ORDERED: Al Hydrox/Mg Hydrox/Simet LIQ* 30 ML UDC PO ONE (19:58)
--- NOTE | 2019-01-05 20:05 | ED ---
Abdominal Pain/Female - HPI Summary HPI Summary: A 48 year old F presents to ED with c/o constant, but of varying intensity, epigastric abd pain onset 1600 today. Pain is described as stabbing and rated 14 out of 10. She says it's the worst pain in life. Associated sx: nausea. Denies fever, SOB, chills, diarrhea, constipation. She seen at [facility] for abd pain approx 2 weeks ago, dx: gall stones. She took a hydrocodone at 1700 which did not alleviate the pain. She last ate at 1430. [facility]: age 41, early menopause. US performed at bedside by ED physician. - History of Current Complaint Chief Complaint: EDAbdPain Stated Complaint: GALLBLADDER ATTACK PER PT Time Seen by Provider: 01/05/19 19:57 Hx Obtained From: Patient Hx Last Menstrual Period: 2012 Onset/Duration: Lasting Hours, Still Present Timing: Constant Severity Initially: Severe Severity Currently: Severe Pain Intensity: 10 Pain Scale Used: 0-10 Numeric Location: Epigastric Character: Sharp Associated Signs and Symptoms: Positive: Nausea. Negative: Fever, Constipation , Diarrhea, Other: - neg: chills, SOB Allergies/Adverse Reactions: Allergies Allergy/AdvReac Type Severity Reaction Status Date / Time sulfamethoxazole Allergy Severe Drug-induced Verified 12/17/18 18:04 [From Bactrim] Liver Injury trimethoprim [From Bactrim] Allergy Severe Drug-induced Verified 12/17/18 18:04 Liver Injury Sulfa (Sulfonamide Allergy bactrim Verified 12/17/18 18:04 Antibiotics) attacted liver, lungs and skin SEASONAL Allergy Congestion Uncoded 12/06/18 11:51 PMH/Surg Hx/FS Hx/Imm Hx Previously Healthy: No Endocrine/Hematology History: Denies: Hx Diabetes, Hx Thyroid Disease Cardiovascular History: Reports: Hx Hypertension - on meds Denies: Hx Pacemaker/ICD, Other Cardiovascular Problems/Disorders Respiratory History: Reports: Hx Asthma - inhalers, Other Respiratory Problems/ Disorders - severe post nasal drip, can sometimes cause n/v Denies: Hx Chronic Obstructive Pulmonary Disease (COPD) GI History: Reports: Other GI Disorders - pos: known gall stones Denies: Hx Ulcer Musculoskeletal History: Reports: Other Musculoskeletal History - broken neck C- 4, as a child, one of only a few pts to ambulate after Sensory History: Reports: Hx Contacts or Glasses - glasses Denies: Hx Hearing Aid Opthamlomology History: Reports: Hx Contacts or Glasses - glasses Neurological History: Denies: Other Neuro Impairments/Disorders Psychiatric History: Reports: Hx Anxiety - on meds, Hx Depression - on meds, Hx Bipolar Disorder Denies: Hx Panic Disorder - Cancer History Hx Chemotherapy: No Hx Radiation Therapy: No - Surgical History Surgery Procedure, Year, and Place: D&C 2016. polypectomy from colon 2017 , [facility] [place] Hx Anesthesia Reactions: No - Immunization History Date of Tetanus Vaccine: Unk Date of Influenza Vaccine: Unk Infectious Disease History: No Infectious Disease History: Denies: Hx Hepatitis, Hx Human Immunodeficiency Virus (HIV), History Other Infectious Disease, Traveled Outside the [place] in Last 30 Days - Family History Known Family History: Positive: Hypertension, Other - Asthma Family History: no known cardiovascular disease - Social History Occupation: Employed Full-time Lives: With Family Alcohol Use: Weekly Alcohol Amount: 2-3 per week Substance Use Type: Reports: None Hx Tobacco Use: No Smoking Status (MU): Never Smoked Tobacco Review of Systems Negative: Fever, Chills Negative: Shortness Of Breath Positive: Abdominal Pain, Nausea. Negative: Diarrhea, Other - neg: constipation All Other Systems Reviewed And Are Negative: Yes Physical Exam - Summary Physical Exam Summary: Appearance: Well appearing, mild pain distress, obese Skin: warm, dry, reflects adequate perfusion Head/face: normal Eyes: EOMI, JOAQUIN ENT: mucous membranes moist Neck: supple, non-tender Respiratory: CTA, breath sounds present Cardiovascular: RRR, pulses symmetrical Abdomen: soft, epigastric tenderness mild RUQ tenderness Bowel Sounds: present Musculoskeletal: normal, strength/ROM intact Neuro: normal, sensory motor intact, A&Ox3 Triage Information Reviewed: Yes Vital Signs On Initial Exam: Initial Vitals Temp Pulse Resp BP Pulse Ox 97.1 F 78 22 168/114 98 01/05/19 19:43 01/05/19 19:43 01/05/19 19:43 01/05/19 19:43 01/05/19 19:43 Vital Signs Reviewed: Yes Diagnostics - Vital Signs Vital Signs Temp Pulse Resp BP Pulse Ox 01/05/19 19:43 97.1 F 78 22 168/114 98 - Laboratory Result Diagrams: 01/05/19 21:15 01/05/19 21:15 Lab Statement: Any lab studies that have been ordered have been reviewed, and results considered in the medical decision making process. Abdominal Pain Fem Course/Dx - Course Course Of Treatment: Sign out to INEZ Edwards at shift change pending US. Patient with epigastric discomfort and history of known gallstones. Gallstones are seen on bedside ultrasound but formal study is pending. Her LFTs, lipase is not elevated. WBC is slightly elevated. Bilious vomiting without blood. Physician fiscal assistant will make disposition following workup. - Diagnoses Differential Diagnosis: Positive: Gall Bladder Disease, Irritable Bowel Syndrome , Pancreatitis, Peptic Ulcer Disease Provider Diagnoses: Epigastric abdominal pain Discharge - Sign-Out/Discharge Documenting (check all that apply): Sign-Out Patient Signing out patient TO: Batool Edwards - pending US Patient Received Moderate/Deep Sedation with Procedure: No - Discharge Plan Condition: Stable Referrals: Swathi Khan MD [Primary Care Provider] - - Billing Disposition and Condition Condition: STABLE - Attestation Statements Document Initiated by Scribe: Yes Documenting Scribe: Tyree Hoff Provider For Whom Scribe is Documenting (Include Credential): Dr. Brandon Mcghee MD Scribe Attestation: I, Tyree Hoff, scribed for Dr. Brandon Mcghee MD on 01/05/19 at 2141. Scribe Documentation Reviewed: Yes Provider Attestation: The documentation as recorded by the Tyree clemens accurately reflects the service I personally performed and the decisions made by , Dr. Brandon Mcghee MD Status of Scribe Document: Viewed
[2019-01-05] MEDS ORDERED: Ondansetron INJ* 2 MG/ML VIAL IV ONE (20:24)
[2019-01-05] MEDS ORDERED: Morphine 4 MG/ML VIAL (1 ml) 4 MG/ML VIAL IV ONE (21:20)
[2019-01-05 21:24] LABS: ABS Basophils 0 10^3/ul (0-0.2); ABS Eosinophils 0.1 10^3/ul (0-0.6); ABS Lymphocytes 1.6 10^3/ul (1.0-4.8); ABS Monocytes 0.5 10^3/ul (0-0.8); ABS Neutrophils 9.5 10^3/ul (1.5-7.7); ABS Nucleated RBC 0 10^3/ul; Eosinophil % 0.5 %; Hematocrit 42 % (33-41); Lymphocyte % 13.8 %; Mean Corpuscular HGB Conc 33 g/dL (31-36); Mean Corpuscular Hemoglobin 30 pg (27-31); Mean Corpuscular Volume 90 fL (80-97); Mean Platelet Volume 7.8 fL (7.4-10.4); Nucleated Red Blood Cells % 0; Platelet Count 332 10^3/uL (150-450); Red Blood Count 4.67 10^6 /uL (3.70-4.87); Red Cell Distribution Width 14 % (10.5-15); White Blood Count 11.7 10^3/uL (3.5-10.8)
[2019-01-05] MEDS ORDERED: Ketorolac INJ* 30 MG/ML 1 ML VIAL IV PUSH ONE (21:30)
[2019-01-05 21:41] LABS: Albumin 4.4 g/dL (3.2-5.2); Albumin/Globulin Ratio 1.6 (1-3); BUN/Creatinine Ratio 24.7 (8-20); C Reactive Protein 9.06 mg/L (<8.01); Calcium 9.6 mg/dL (8.6-10.3); EGFR African American 91.3 (>60); EGFR Non-African American 75.5 (>60); Globulin 2.8 g/dL (2-4); Potassium 3.9 mmol/L (3.5-5.0); Total Bilirubin 0.4 mg/dL (0.2-1.0); Total Protein 7.2 g/dL (6.4-8.9)
--- NOTE | 2019-01-05 22:15 | ED ---
Progress - Progress Note Progress Note: patient signed out by dr mcghee pending u/s for dispo. labs: wbc and crp slightly elevated. normal LFT. afebrile. - Results/Orders Results/Orders: ultrasound: Gallbladder: Multiple hyperechoic gallstones with a non-mobile gallstone within the gallbladder neck. Borderline wall thickening measuring 0.3 cm. Positive sonographic Anaya's sign. No pericholecystic fluid. Re-Evaluation - Re-Evaluation First Eval Re-Evaluation Time: 23:36 Change: Improved Comment: no pain Course/Dx - Course Course Of Treatment: Patient with epigastric discomfort and history of known gallstones. Gallstones are seen on bedside ultrasound but formal study is pending. Her LFTs, lipase is not elevated. WBC is slightly elevated. Bilious vomiting without blood. u/s shows cholecystitis. patient has no pain right now. no nausea currently. patient states wants to go home. spoke with dr rios about results and states patient can be discharge home to follow up in office today. warned if develop persistent vomiting or fever to return. patient understand and agrees with plan. - Diagnoses Provider Diagnoses: Cholelithiasis - Provider Notifications Discussed Care Of Patient With: Landry Rios Time Discussed With Above Provider: 23:15 - discussed ultrasound, patient can be follow up in office tomorrow as afebrile and no pain Discharge - Sign-Out/Discharge Documenting (check all that apply): Patient Departure, Receiving Sign-Out Receiving patient FROM: Brandon Mcghee Patient Received Moderate/Deep Sedation with Procedure: No - Discharge Plan Condition: Stable Disposition: HOME Patient Education Materials: Gallstones (ED) Referrals: Landry Rios MD [Medical Doctor] - Swathi Khan MD [Primary Care Provider] - Additional Instructions: call tomorrow morning at 8 for appointment Take tramadol every 6 hours as needed for pain Take zofran every 6 hours as needed for nausea Return to ED if develop fever, persistent vomiting or any new or worsening symptoms - Billing Disposition and Condition Condition: STABLE Disposition: Home
[2019-01-05] MEDS ORDERED: Ondansetron ODT TAB* 4 MG PO ONE (23:40)
[2019-01-06 00:23] VITALS: BP 129/86
== END 2019-01-06 00:25 | disposition home or self-care (01) ==
LOC: ED 19:36
DX: K80.00 Calculus of gallbladder with acute cholecystitis without obstruction (principal); R10.13 Epigastric pain; R11.0 Nausea; I10 Essential (primary) hypertension; J45.909 Unspecified asthma, uncomplicated; F41.9 Anxiety disorder, unspecified; F32.9 Major depressive disorder, single episode, unspecified; Z88.2 Allergy status to sulfonamides
CPT/HCPCS: 36415; 76705; 80053; 83605; 83690; 85025; 86140; 96374; 96375; 99283; A9270-GY; J1885; J2270; J2405

== ENCOUNTER 2019-01-06 12:15 | Observation (INO) | payer OTHER ==
[2019-01-06] MEDS ORDERED: Buffered Lidocaine 1% SYRIN* 1 ML/SYRINGE INTRADERM ONE ×2 (13:35→15:05)
[2019-01-06] MEDS ORDERED: Zosyn per Pharmacy* NOTE FOLLOW UP PRN (14:09)
[2019-01-06] MEDS ORDERED: ZOSYN 3.375 GM x ONE DOSE over 30 miuntes IVPB ×2 (14:30)
[2019-01-06 14:35] LABS: ABS Basophils 0 10^3/ul (0-0.2); ABS Eosinophils 0.1 10^3/ul (0-0.6); ABS Lymphocytes 2.4 10^3/ul (1.0-4.8); ABS Monocytes 0.5 10^3/ul (0-0.8); ABS Neutrophils 5.1 10^3/ul (1.5-7.7); ABS Nucleated RBC 0 10^3/ul; Eosinophil % 1.4 %; Hematocrit 39 % (33-41); Hemoglobin 12.9 g/dL (12.0-16.0); Lymphocyte % 29.4 %; Mean Corpuscular HGB Conc 33 g/dL (31-36); Mean Corpuscular Hemoglobin 30 pg (27-31); Mean Corpuscular Volume 90 fL (80-97); Mean Platelet Volume 7.6 fL (7.4-10.4); Nucleated Red Blood Cells % 0.1; Platelet Count 299 10^3/uL (150-450); Red Blood Count 4.29 10^6 /uL (3.70-4.87); Red Cell Distribution Width 14 % (10.5-15)
[2019-01-06 14:51] LABS: Albumin/Globulin Ratio 1.5 (1-3); BUN/Creatinine Ratio 21.3 (8-20); Calcium 9.3 mg/dL (8.6-10.3); EGFR African American 81.9 (>60); EGFR Non-African American 67.7 (>60); Globulin 2.6 g/dL (2-4); Potassium 3.9 mmol/L (3.5-5.0); Total Bilirubin 0.6 mg/dL (0.2-1.0); Total Protein 6.6 g/dL (6.4-8.9)
[2019-01-06 16:06] LABS: HCG Pregnancy 3.26 mIU/mL
[2019-01-06] MEDS: NS 0.9% 1000 ML** 1,000 ML IV SCH (16:08)
[2019-01-06] MEDS: HYDROmorphone INJ1* 1 MG/ML SYRINGE IV PRN ×2 (16:09→20:17)
[2019-01-06] MEDS: Ondansetron INJ* 2 MG/ML VIAL IV PRN ×2 (16:09→20:17)
[2019-01-06] MEDS ORDERED: Albuterol HFA INHALER* 8 gm MDI INH PRN (19:12)
[2019-01-06] MEDS ORDERED: ZOSYN 3.375 GM Q8H per EXTENDED INFUSION IVPB SCH ×2 (20:00)
[2019-01-06] MEDS: ZOSYN 3.375 GM Q8H per EXTENDED INFUSION IVPB SCH ×2 (20:21)
[2019-01-06] MEDS ORDERED: Ondansetron INJ* 2 MG/ML VIAL IV PRN (20:28)
[2019-01-06] MEDS: ARIPiprazole TAB* 2 MG PO SCH (22:34)
[2019-01-06] MEDS: Montelukast Sodium TAB* 10 MG PO SCH (22:34)
[2019-01-06] MEDS: QUEtiapine TAB* 300 MG PO SCH (22:34)
[2019-01-06] MEDS: lamoTRIgine TAB(*) 100 MG PO SCH (22:38)
[2019-01-07] MEDS: Ondansetron INJ* 2 MG/ML VIAL IV PRN ×2 (00:35→06:06)
[2019-01-07] MEDS: HYDROmorphone INJ1* 1 MG/ML SYRINGE IV PRN ×5 (00:35→22:23)
[2019-01-07] MEDS: NS 0.9% 1000 ML** 1,000 ML IV SCH ×3 (00:38→17:50)
[2019-01-07] MEDS ORDERED: Lactated Ringers 1000 ML Bag* 1,000 ML IV SCH (06:00)
[2019-01-07] MEDS ORDERED: Sodium Citrate/Citric Acid* 15 ML UDC PO ONE (06:00)
[2019-01-07] MEDS: ZOSYN 3.375 GM Q8H per EXTENDED INFUSION IVPB SCH ×4 (06:06→13:06)
[2019-01-07] MEDS: Lactated Ringers 1000 ML Bag* 1,000 ML IV SCH ×3 (06:20→18:17)
[2019-01-07] MEDS: Methylphenidate ER TAB* 18 MG PO SCH (09:08)
[2019-01-07] MEDS: Lisinopril TAB* 10 MG PO SCH (09:08)
[2019-01-07] MEDS ORDERED: Sodium Citrate/Citric Acid* 15 ML UDC ONE (12:22)
[2019-01-07] MEDS ORDERED: Levalbuterol 0.63MG/3ML NEB* UNIT OF USE INH ONE (12:35)
[2019-01-07] MEDS ORDERED: Bupivacaine 0.25% EPI 200,000* 30 ML SDV ONE (12:41)
[2019-01-07] MEDS ORDERED: fentaNYL* 50 MCG/ML 2 ML VIAL (100 MCG VIAL) ONE ×3 (12:58→16:55)
[2019-01-07] MEDS ORDERED: Propofol* 10 MG/ML 20 ML BTL ONE ×2 (12:58→15:06)
[2019-01-07] MEDS ORDERED: Lidocaine 2% PF * 5 ML VIAL ONE (12:58)
[2019-01-07] MEDS ORDERED: Rocuronium* 10 MG/ML VIAL ONE (12:58)
[2019-01-07] MEDS ORDERED: Midazolam* 1 MG/ML 2 ML VIAL (2 MG) ONE (12:58)
--- NOTE | 2019-01-07 15:29 | OP ---
Operative Report - Blank - Operative Report Date of Operation: 01/07/19 Note: Brief Operative Note Preop Dx: cholecystitis Postop Dx: same; also, adhesions and ventral hernia Procedure: laparoscopic cholecystectomy, lysis of adhesions, open primary repair ventral hernia Anesthesia: GET Surgeon: Deedee Hematology Nurse: INEZ Vasquez Fluids: 800 ml RL EBL: < 50 ml Specimen: gallbladder Drains: none Findings: dictated
[2019-01-07] MEDS ORDERED: fentaNYL* 50 MCG/ML 2 ML VIAL (100 MCG VIAL) IV PRN (17:11)
[2019-01-07] MEDS ORDERED: Naloxone* 0.4 MG/ML 1 ML VIAL IV PRN (17:11)
[2019-01-07] MEDS ORDERED: HYDROmorphone INJ1* 1 MG/ML SYRINGE IV PRN (18:23)
[2019-01-07] MEDS ORDERED: oxyCODONE/Acetamin 5/325 MG* TAB PO PRN ×2 (18:25→18:26)
[2019-01-07] MEDS ORDERED: Acetaminophen TAB* 325 MG PO PRN (18:26)
[2019-01-07] MEDS: Ketorolac INJ* 30 MG/ML 1 ML VIAL IV PRN (19:48)
[2019-01-07] MEDS: lamoTRIgine TAB(*) 100 MG PO SCH (22:33)
[2019-01-07] MEDS: ARIPiprazole TAB* 2 MG PO SCH (22:33)
[2019-01-07] MEDS: QUEtiapine TAB* 300 MG PO SCH (22:33)
[2019-01-07] MEDS: Montelukast Sodium TAB* 10 MG PO SCH (22:35)
[2019-01-08] MEDS: Lactated Ringers 1000 ML Bag* 1,000 ML IV SCH (01:52)
--- NOTE | 2019-01-08 02:21 | OP ---
CC: Swathi Khan MD.* DATE OF OPERATION: 01/07/19 - ROOM #339 DATE OF : 70 SURGEON: Payam Mark MD MANAGER ANDROID: INEZ Betancourt ANESTHESIOLOGIST: Dr. Gupta. ANESTHESIA: General endotracheal. PRE-OP DIAGNOSIS: Acute cholecystitis. POST-OP DIAGNOSES: Acute cholecystitis and incisional hernia, periumbilical. OPERATIVE PROCEDURE: Laparoscopic cholecystectomy, lysis of adhesions, open primary repair of incisional hernia. ESTIMATED BLOOD LOSS: Less than 50 mL. IV FLUIDS: 800 mL crystalloid. SPECIMEN: Gallbladder. DRAINS: None. COMPLICATIONS: None. COUNTS: The instrument, needle, and sponge counts were correct. DESCRIPTION OF PROCEDURE: The patient was brought to the operating room and placed on the stable in supine. Sequential compression devices were placed on both lower extremities. General anesthesia was administered. The patient was positioned and padded appropriately. She was prepped and draped in the usual sterile fashion. She received appropriate intravenous antibiotics at the time it was performed. Local anesthetic was infiltrated into the skin and soft tissue at the incision sites. Entry to the abdomen was through an open technique at the umbilical site through previous scar. Hernia was encountered here and there were noted to be adhesions of omentum to the anterior abdominal wall. We completed the adhesiolysis bluntly and then placed a 12 mm port into the abdominal cavity and insufflated carbon dioxide to a pressure of 15 mmHg. Laparoscope was navigated around additional omental adhesions and underneath the falciform ligament to visualize the right upper quadrant. Two 5-mm trocars were placed around the upper quadrant and 1 in the subxiphoid position. A 5-mm trocar was also placed supraumbilically on the right side in order to serve as a camera port due to the adhesions in the area surrounding the umbilical region. With the patient in reverse Trendelenburg, right side up, the gallbladder was identified; it was noted to be tensely distended and acutely inflamed. The gallbladder was drained by draining a cholecystostomy with a cautery and then placed in the endoscopic section within the gallbladder and clear bile was aspirated from the gallbladder. Cholecystostomy site was then grasped and retracted cephalad and then the thickened peel surrounding the infundibulum was incised with cautery and dissected free. The cystic node, the cystic artery and cystic ducts were identified and dissection was performed on the medial and lateral aspects of the infundibulum to identify and dissected out the cystic duct. The artery was first doubly clipped and divided and then hook cautery was used to further dissect out the cystic duct until critical view was obtained. The duct was then double clipped and divided and then the gallbladder was freed from attachments to the liver using the hook cautery and staying in the avascular plane. An endoscopic retrieval bag was placed through the umbilical site and then gallbladder was retrieved through this. The wound was enlarged along the scar. At this point, additional dissection was performed to free fascia at the edges of the hernia and then using a series of figure-of- eight sutures with 0 Ethibond, the fascia was closed primarily. Pneumoperitoneum was reestablished and then the inspection of the area of dissection revealed excellent hemostasis and the clips were intact. Lavage was performed until clear in the right upper quadrant. Ports were then removed. The skin incisions were closed with 4-0 Monocryl in subcuticular fashion and Steri-Strips applied. The patient tolerated the procedure well, was extubated and transferred to Recovery in stable condition. [id number]/[facility] #: [id number] MELLO
[2019-01-08] MEDS: HYDROmorphone INJ1* 1 MG/ML SYRINGE IV PRN ×2 (03:39→07:39)
[2019-01-08] MEDS: Ketorolac INJ* 30 MG/ML 1 ML VIAL IV PRN (07:38)
[2019-01-08] MEDS: Ondansetron INJ* 2 MG/ML VIAL IV PRN (07:39)
[2019-01-08] MEDS ORDERED: traMADol TAB* 50 MG PO PRN (08:29)
--- NOTE | 2019-01-08 08:29 | PN ---
Progress Note - Progress Note Date of Service: 01/08/19 SOAP: Subjective: Having pain and nausea with relief from IV meds. Doesn't do well with oxycodone and hydrocodone "makes me goofy." Willing to try tramadol. No flatus. Findings at surgery were discussed. Objective: Vital Signs Temp 98.3 F 01/08/19 07:22 Pulse 79 01/08/19 07:22 Resp 18 01/08/19 07:39 BP 108/59 01/08/19 07:22 Pulse Ox 94 01/08/19 07:22 Gen: mod discomfort Abd: obese; incisions with dressings c/d/i; tender in mid to upper abdomen to light palpation. Intake & Output 01/07/19 01/08/19 01/08/19 18:59 06:59 18:59 Intake Total 765 1690 Output Total 1250 Balance 765 440 Intake: IV Fluids 765 980 LR 700 980 Oral 0 710 Output: Urine 1250 Active Medications Generic Name Dose Route Start Last Admin Trade Name Freq PRN Reason Stop Dose Admin Acetaminophen 650 mg 01/07/19 18:26 Tylenol Tab* PO Q4H PRN PAIN - MILD Albuterol 2 puff 01/06/19 19:12 Ventolin Hfa Inhaler* INH Q6H PRN WHEEZING Aripiprazole 2 mg 01/06/19 20:00 01/07/19 22:33 Abilify Tab* PO 2 mg QPM GIORGI Administration Hydromorphone HCl 1 mg 01/06/19 14:09 01/08/19 07:39 Dilaudid Inj1s* IV 1 mg Q3H PRN Administration PAIN - SEVERE Hydromorphone HCl 0.5 mg 01/07/19 18:23 Dilaudid Inj1s* IV Q2H PRN PAIN - MODERATE Lactated Ringer's 1,000 mls @ 125 mls/hr 01/07/19 19:00 01/08/19 01:52 Lactated Ringers 1000 Ml Bag* IV 125 mls/hr PER RATE GIORGI Administration Ketorolac Tromethamine 30 mg 01/07/19 18:24 01/08/19 07:38 Toradol Inj* IV 30 mg Q6H PRN Administration PAIN - MODERATE Lamotrigine 200 mg 01/06/19 23:00 01/07/19 22:33 Lamictal Tab(*) PO 200 mg BEDTIME GIORGI Administration Lisinopril 10 mg 01/07/19 09:00 01/07/19 09:08 Prinivil Tab* PO Not Given QAM GIORGI Methylphenidate HCl 72 mg 01/07/19 09:00 01/07/19 09:08 Concerta Er Tab* PO Not Given QAM GIORGI Montelukast Sodium 10 mg 01/06/19 20:00 01/07/19 22:35 Singulair Tab* PO Not Given QPM GIORGI Ondansetron HCl 4 mg 01/06/19 14:10 01/08/19 07:39 Zofran Inj* IV 4 mg Q4H PRN Administration NAUSEA/VOMITING Oxycodone/Acetaminophen 2 tab 01/07/19 18:25 Percocet 5/325 Tab* PO Q4H PRN PAIN - MODERATE TO SEVERE Oxycodone/Acetaminophen 1 tab 01/07/19 18:26 Percocet 5/325 Tab* PO Q4H PRN PAIN - MODERATE Quetiapine Fumarate 150 mg 01/06/19 21:00 01/07/19 22:33 Seroquel Tab* PO 150 mg BEDTIME GIORGI Administration Assessment: POD#1 s/p lap precious/VIHR. Doing well but pain control poor. Plan: Will give tramadol and try to wean from IV meds. Encourage po as tolerated. May be able to go home this afternoon vs. AM depending on progress today.
[2019-01-08] MEDS: Lisinopril TAB* 10 MG PO SCH (08:49)
[2019-01-08] MEDS: Methylphenidate ER TAB* 18 MG PO SCH (08:50)
[2019-01-08 13:46] VITALS: BP 138/78
== END 2019-01-08 16:20 | disposition home or self-care (01) ==
LOC: MED 12:15 → SSU 01-07 17:33
PROVIDERS: ADMIT Surgery; ATTEND Surgery
DX: K81.0 Acute cholecystitis (principal); R10.13 Epigastric pain; K43.2 Incisional hernia without obstruction or gangrene; I10 Essential (primary) hypertension; Z88.2 Allergy status to sulfonamides; Z79.899 Other long term (current) drug therapy
CPT/HCPCS: 36415; 80053; 84702; 85025; 88304; 96365; 96366; 96375; A9270-GY; G0378; J1170; J1885; J2250; J2405; J2543; J2704; J3010

== ENCOUNTER → 2019-09-09 11:52 | Day surgery (SDC) | payer OTHER ==
[~2019-09-09 11:52] MED LIST changes: +Buffered Lidocaine 1% SYRIN* 1 ML/SYRINGE INTRADERM ONE; +Lactated Ringers 1000 ML Bag* 1,000 ML IV SCH; +Lidocaine 2% PF * 5 ML VIAL ONE; -Morphine 10 MG/ML VIAL (1 ml) IV ONE; -NS 0.9% 1000 ML** 1,000 ML IV ONE; +Naloxone* 0.4 MG/ML 1 ML VIAL IV PRN; -Ondansetron INJ* 2 MG/ML VIAL IV ONE; +Propofol* 10 MG/ML 20 ML BTL ONE; +fentaNYL* 50 MCG/ML 2 ML VIAL (100 MCG VIAL) ONE
[2019-09-09 15:49] VITALS: BP 135/79
--- NOTE | 2019-09-09 23:24 | PRO ---
CC: Dr. Khan * DATE OF PROCEDURE: 09/09/19 - [facility] PROCEDURE: Incomplete colonoscopy. INDICATION: History of cecal polyp in the past, history of incomplete colonoscopies in the past. REFERRING PROVIDER: Dr. Khan. MEDICATIONS GIVEN: Propofol per the anesthesia staff. DESCRIPTION OF PROCEDURE: After the colonoscopy procedure, including risks, benefits, and alternatives, not limited to perforation, surgery, and/or were explained to Mrs. Potts, a written consent was then obtained. IV medication was given and a rectal exam was performed. The rectal exam was unremarkable. An Olympus colonoscope was then inserted into the patient's rectum and advanced very carefully through the colon and into the distal transverse colon. Unfortunately, as before it was extremely difficult to navigate around through this area. The patient was very uncomfortable. Despite the propofol, she continued to have pain. It was very arduous and difficult to advance the scope. We were attempting to use external hand support ; however, the patient is super morbidly obese. Given the fact, she has had an incomplete colonoscopy in the past, I decided to terminate procedure at this point and scope was withdrawn, no other abnormalities were seen. Retroflexion maneuver was unremarkable. She will be scheduled for virtual colonography. Scope was withdrawn and she was recovered in the PACU. IMPRESSION: 1. Incomplete colonoscopy to the distal transverse colon. 2. Second incomplete colonoscopy, we will arrange for virtual. 3. I will follow up with a virtual colonography. [id number]/[facility] #: [id number] MTDD
== END | disposition home or self-care (01) ==
LOC: OR 11:52
PROVIDERS: ATTEND Internal Medicine Gastroenterology
DX: Z12.11 Encounter for screening for malignant neoplasm of colon (principal); Z09 Encounter for follow-up examination after completed treatment for conditions other than malignant neoplasm; Z86.010 Personal history of colon polyps; I10 Essential (primary) hypertension; F41.8 Other specified anxiety disorders; F31.9 Bipolar disorder, unspecified; R79.89 Other specified abnormal findings of blood chemistry; J45.990 Exercise induced bronchospasm
CPT/HCPCS: 74018; 74263; J2704; J3010